=== PATIENT | male | born 1940 | race Caucasian/White ===

== ENCOUNTER → 2016-10-13 16:29 | Outpatient (CLI) | payer MEDICARE, OTHER ==
[2015-11-24 07:43] VITALS: BMI 29.4
[~2016-10-13 16:29] MED LIST: ADVAIR 500/501 DISK INH; AMBIEN CR 6.26.25 MG PO; BACTRIM DS TABL1 TAB PO; BAYER CHEWABLE81 MG PO; CARAFATE1 G/10 ML PO; DEXILANT60 MG PO; FISH OIL 1,0001 CA1 PO; GABAPENTIN100 MG PO; INDERAL10 MG PO; KLONOPIN1 MG PO; MYSOLINE 50 MG50 MG PO; OS-CAL 500+D TA1 TAB; PLAVIX75 MG PO; PREDNISONE50 MG PO; PROAIR HFA8.5 GM; PROTONIX40 MG PO; REGLAN10 MG PO; SINGULAIR10 MG PO; VITAMIN C1000 MG PO; XOLAIR150 MG/VIA INJ; ZETIA10 MG PO; ZOCOR10 MG PO; palgic; palgic PO
[2016-10-13 16:56] LABS: CHOL - HDL RATIO 2.7 ratio (2.3-4.9); LDL-HDL RATIO 1.4 ratio (1.5-3.5)
== END | disposition home or self-care (01) ==
LOC: D.LABREF 16:29
PROVIDERS: Internal Medicine Interventional Cardiology
DX: E78.5 Hyperlipidemia, unspecified (principal)

== ENCOUNTER 2018-07-15 07:51 | Outpatient (CLI) | payer MEDICARE, OTHER ==
[~2018-07-15] VITALS: Ht 172.7 cm; Wt 79.5 kg
--- NOTE | ~2018-07-15 | HEMODYNAMI ---
PATIENT:SHELLY LANG JR MEDICAL RECORD: [id number] : 42 LOCATION:D.CAT ADMISSION DATE: 07/15/18 Generatedon:07/15/201810:46 Patient name: SHELLY LANG Patient #: [id number] SSN: : [id number] Date of study: 07/15/2018 Page: Of Hemodynamic Procedure Report Patient Data Patient Demographics Procedure consent was obtained First Name: SHELLY Gender: Male Last Name: RICKEY Suffix: [facility] Initial: THOMAS : 1940 Patient #: [id number] Age: 77 year(s) Race: Unknown Additional ID: [id number] Contact details [address]: [address] [place] [address] [facility] State: [place] City: [place] Zip code: [address] Past Medical History Allergies Allergen Reaction Date Comments Reported Other allergy 07/05/2018 SIMVASTATIN Admission Admission Data Admission Date: 07/15/2018 Admission Time: 7:51 Procedure Procedure Types Cath Procedure Diagnostic Procedure LHC LH w/Coronaries Sedation Charges Moderate Sedation up to 15 minutes Peripheral Cath Diagnostic Procedure Auto Glass Technician Peripheral Procedures Wdhlv-Kqhzuhb-Jjm-Off Procedure Description Procedure Date Procedure Date: 07/15/2018 Procedure Start Time: 10:26 Procedure End Time: 10:46 Procedure Staff Name Function Chay Thornton MD Performing Physician Irasema De La Fuente RT Monitor Brittani Thomas RT Scrub Demario Ramesh RN Nurse Procedure Data Cath Procedure Fluoroscopy Diagnostic fluoroscopy Total fluoroscopy Time: 3.2 time: 3.2 min min Diagnostic fluoroscopy Total fluoroscopy dose: 992 dose: 992 mGy mGy Contrast Material Contrast Material Type Amount (ml) Isovue 300 105 Entry Location Entry Primary Successful Side Size Upsize 1 Upsize Entry Closure Lindsay ccessful Closure Location (Fr) (Fr) 2 (Fr) Remarks Device Remarks Femoral Right 5 Fr 6 Fr 6 Fr Exoseal artery Mid-Length Short Estimated blood loss: 10 ml Diagnostic catheters Device Type Used For End Catheter Placement MULTIPACK Pigtail 5 Fr Procedure catheter MULTIPACK JL 4.0 5Fr Procedure catheter DIAGNOSTIC JL 5 5Fr Procedure catheter ([id number]) DIAGNOSTIC AR MOD 5Fr Procedure Catheter ([id number]) MULTIPACK Pigtail 5 Fr Abdominal catheter aortogram with runoff Procedure Complications No complications Procedure Medications Medication Administration Route Dosage 0.9% NaCl I.V. 100 ml/hr Oxygen etCO2 Nasal cannula 2 l/min Heparin Flush Bag added to field 2 bags (1000units/500ml NS) Lidocaine 2% added to field 20 Versed I.V. 0.5 mg Fentanyl I.V. 25 mcg Versed I.V. 0.5 mg Fentanyl I.V. 25 mcg Hemodynamics Rest Heart Rate: 67 (bpm) Snapshots Pre Cath Intra NCS Post Cath Vital Signs Time Heart Resp SPO2 etCO2 NIBP Rhythm Pain Sedation Rate (ipm) (%) (mmHg) (mmHg) Status Level (bpm) 10:20:28 68 17 94 0 113/74(97) NSR 0 (11) 10(A) , No pain 10:24:36 69 17 94 0 114/70(90) NSR 0 (11) 10(A) , No pain 10:28:44 68 17 94 0 103/70(81) NSR 0 (11) 10(A) , No pain 10:32:45 70 20 88 0 114/72(94) NSR 0 (11) 9(A) , No pain 10:36:53 67 15 94 0 106/69(80) NSR 0 (11) 9(A) , No pain 10:40:59 88 10 93 0 99/68(84) NSR 0 (11) 9(A) , No pain 10:45:01 67 12 91 0 102/68(80) NSR 0 (11) 9(A) , No pain Medications Time Medication Route Dose Verified Delivered Reason Notes Eff ectiveness by by 10:17:16 0.9% NaCl I.V. 100 Demario Demario Per ml/hr Gadiel Ramesh physician RN RN 10:17:26 Oxygen etCO2 2 Demario Demario Per Nasal l/min Gadiel Ramesh physician cannula RN RN 10:17:40 Heparin Flush added 2 Demario Demario used for Bag to bags Gadiel Ramesh procedure (1000units/500ml field RN RN NS) 10:17:51 Lidocaine 2% added 20ml Demario Demario for local to vial Gadiel Solaresigan anesthetic field RN RN 10:21:59 Versed I.V. 0.5 Demario Hanks for mg Lorigan Lorigan sedation RN RN 10:22:07 Fentanyl I.V. 25 Demario Hanks for mcg Lorigan Lorigan sedation RN RN 10:27:33 Versed I.V. 0.5 Demario Hanks for mg Lorigan Lorigan sedation RN RN 10:27:39 Fentanyl I.V. 25 Demario Hanks for mcg Lorigan Lorigan sedation RN technical communication teacher Log Time Note 10:00:58 Demario Ramesh RN sent for patient. Start room use. 10:07:23 Informed consent obtained and on chart 10:08:04 Time tracking: Regular hours (M-F 7:00 - 5:00) 10:08:08 Plan of Care:Hemodynamics will remain stable., Cardiac rhythm will remain stable., Comfort level will be maintained., Respiratory function will remain adequate., Patient/ family verbilizes understanding of procedure., Procedure tolerated without complication., Recovers from procedure without complications.. 10:08:12 Patient received from Pre/Post Procedure Room to CCL 2 Alert and oriented. Tansferred to table in Supine position. 10:08:13 Warm blankets applied, and jose maria hugger turned on for patient comfort. 10:08:13 Correct patient and procedure confirmed by team. 10:08:14 ECG and BP/O2 sat monitors applied to patient. 10:17:16 0.9% NaCl 100 ml/hr I.V. was administered by Demario Ramesh RN; Per physician; 10:17:26 Oxygen 2 l/min etCO2 Nasal cannula was administered by Demario Ramesh RN; Per physician; 10:17:40 Heparin Flush Bag (1000units/500ml NS) 2 bags added to field was administered by Demario Ramesh RN; used for procedure; 10:17:51 Lidocaine 2% 20ml vial added to field was administered by Demario Ramesh RN; for local anesthetic; 10:19:22 Vital chart was started 10:19:25 Baseline sample Acquired. 10:19:30 Rhythm: sinus rhythm , paced 10:19:32 Full Disclosure recording started 10:20:00 H&P Date Dictated: 07/01/2018 Within 30 days and on chart., H&P Addendum completed by physician on day of procedure. (MUST COMPLETE FOR ALL OUTPATIENTS). 10:20:01 Pre-procedure instructions explained to patient. 10:20:03 Family in waiting room. 10:20:05 Patient NPO since Midnight. 10:20:12 Is the patient allergic to Iodine/contrast media? No. 10:20:13 Was the patient premedicated? Yes 10:20:14 Is patient on blood thinner?No 10:20:16 Patient diabetic? No. 10:20:24 Snore? Yes 10:20:25 Sleep apnea? No 10:20:31 Airway obstruction? Yes asthma 10:20:35 Dentures? No ? 10:20:43 IV patent on arrival in left forearm with 0.9% NaCl at [facility] 10:20:48 Lab results completed and on chart. 10:20:52 Right groin area was prepped with chlora-prep and draped in sterile fashion 10:20:53 Alarms reviewed by R. N. 10:20:54 Sharps counted by scrub and verified by R.N. 10:20:57 Physician paged 10:21:22 Physician arrived 10::23 --------ALL STOP TIME OUT------ 10:21:24 Final Timeout: patient, procedure, and site verified with staff and physician. All members of the team are in agreement. 10:21:26 Right groin site verified by team. 10:21:30 Physical assessment completed. ASA score P 2 - A patient with mild systemic disease as per Chay Thornton MD. 10:21:35 Sedation plan: IV Moderate Sedation Medication:Versed, Fentanyl 10::59 Versed 0.5 mg I.V. was administered by Demario Ramesh RN; for sedation; 10:22:07 Fentanyl 25 mcg I.V. was administered by Demario Ramesh RN; for sedation; 10:25:53 Procedure started. 10::59 Use device set Femoral Dx 10:26:04 Local anesthetic to right femoral artery with Lidocaine 2% by Chay Thornton MD.INITIAL ACCESS ONLY 10:26:05 Zero performed for pressure channel P1 10:26:22 A 5 Fr sheath was inserted into the Right Femoral artery 10:26:25 ACIST Syringe (57895) opened to sterile field. 10:26:26 Bag Decanter (2001S) opened to sterile field. 10:26:26 Medline Cath Pack ([id number]) opened to sterile field. 10:26:27 DIAGNOSTIC WIRE .035 260cm J wire (006397) opened to sterile field. 10:26:28 ACIST Hand Control (67474) opened to sterile field. 10:26:29 ACIST Manifold (69535) opened to sterile field. 10:26:29 DIAGNOSTIC Multipack 5Fr catheter set (AV5348) opened to sterile field. 10:26:32 SHEATH 5FR [place] (EJY591) opened to sterile field. 10:26:33 Tegaderm 4 x 4 (1626W) opened to sterile field. 10:27:29 A MULTIPACK Pigtail 5 Fr catheter was advanced over the wire and used for Procedure. 10:27:33 Versed 0.5 mg I.V. was administered by Demario Ramesh RN; for sedation; 10:27:35 LV gram done using ROSE 10:27:39 Fentanyl 25 mcg I.V. was administered by Demario Ramesh RN; for sedation; 10:28:09 EF : 50 % 10:28:12 Catheter removed. 10:28:18 A MULTIPACK JL 4.0 5Fr catheter was advanced over the wire and used for Procedure. 10:28:55 Catheter removed. 10:29:16 A DIAGNOSTIC JL 5 5Fr catheter ([id number]) was advanced over the wire and used for Procedure. 10:31:45 SHEATH 6FR ARROW 45cm (CL-02458) opened to sterile field. 10:32:01 Sheath upsized to a 6 Fr Mid-Length. 10:33:04 LCA angiography performed. 10:33:28 Catheter removed. 10:34:19 A DIAGNOSTIC AR MOD 5Fr Catheter ([id number]) was advanced over the wire and used for Procedure. 10:34:43 RCA angiography performed. 10:35:53 A MULTIPACK Pigtail 5 Fr catheter was advanced over the wire and used for Abdominal aortogram with runoff. 10:36:13 Abdominal angiogram w/ runoff was performed. 10:36:16 Left leg runoff performed. 10:36:18 Right leg runoff performed. 10:38:28 Sheath upsized to a 6 Fr Short. 10:38:28 Sheath removed intact; hemostasis achieved with Exoseal to the Right Femoral artery. 10:38:38 SHEATH 6FR [place] (OAW345) opened to sterile field. 10:38:54 EXOSEAL 6Fr (EX600) opened to sterile field. 10:40:51 Procedure ended.(Physican Out) 10:41:06 Fluoroscopy time 03.20 minutes. 10:41:18 Fluoroscopy dose: 992 mGy 10:41:18 Flurop Dose total: 992 10:41:22 Contrast amount:Isovue 300 105ml. 10:41:25 Sharps counted by scrub and verified by R.N. 10:41:29 Insertion/operative site no bleeding no hematoma. 10:41:35 Post-op/insertion site Right Femoral artery dressed using a 4 x 4 and Tegaderm. 10:41:39 Post Procedure Pulses reassessed and unchanged 10:41:43 Post-procedure physical assessment completed. ASA score P 2 - A patient with mild systemic disease as per Chay Thornton MD. 10:41:47 Post procedure rhythm: unchanged. 10:41:50 Estimated blood loss: 10 ml 10:41:53 Post procedure instruction explained to patient.Patient verbalizes understanding. 10:43:16 Procedure type changed to Cath procedure, Diagnostic procedure, LHC, LHC w/Coronaries, Sedation Charges, Moderate Sedation up to 15 minutes, Peripheral Cath Diagnostic Procedure, Auto Glass Technician Peripheral Procedures, Ujclm-Vigatco-Qbb-Off 10:43:18 Procedure and supply charges have been captured, reviewed, submitted and are correct. 10:43:39 Procedure Complication : No complications 10:45:58 Vital chart was stopped 10:45:59 See physician's report for complete and final results. 10:46:03 Report given to Pre/Post Procedure Room. 10:46:06 Patient transfered to Pre/Post Procedure Room with Stretcher. 10:46:09 Procedure ended. 10:46:09 Full Disclosure recording stopped 10:46:11 End room use (Document Last) Device Usage Item Name Manufacture Quantity Catalog Hospital Part Current Minimal L ot# / Number Charge Number Stock Stock Serial# Code KATHERIN Acist 1 73177 242566 294797 619879 20 Syringe [employer] (56513) Systems Inc Bag Microtek 1 999170 36218 596942 5 Decanter Medical Inc. () Medline Medline 1 [id number] 542083 05838 361341 5 Cath Pack ([id number]) DIAGNOSTIC [place] 1 518856 559616 876017 849067 30 WIRE .035 260cm J wire (743796) ACIST Hand Acist 1 37433 109030 871757 234332 5 Control Medical (65848) Systems Inc ACIST Acist 1 24892 990165 326122 426080 5 Manifold Medical (25205) Systems Inc DIAGNOSTIC Cardinal 1 [id number] 288943 48714 359278 30 Multipack Health 5Fr catheter set ([id number]) SHEATH 5FR Terumo 1 [id number] 924215 790917 515255 5 [place] (QVD798) Tegaderm 4 3M 1 1626W 886122 406512 248432 5 x 4 (1626W) MULTIPACK Cardinal 1 014820 5 Pigtail 5 Health Fr catheter MULTIPACK Cardinal 1 127156 5 JL 4.0 5Fr Health catheter DIAGNOSTIC Cardinal 1 [id number] 419433 141916 601612 5 JL 5 5Fr Health catheter ([id number]) SHEATH 6FR Teleflex 1 [id number] 403033 771015 492876 5 ARROW 45cm (CL-01234) DIAGNOSTIC Cardinal 1 [id number] 960207 159066 647314 15 AR MOD 5Fr Health Catheter ([id number]) SHEATH 6FR Terumo 1 [id number] 320776 693318 217599 40 [place] (HNG363) EXOSEAL 6Fr Cardinal 1 EX600 632966 984411 766074 10 (EX600) Health Signature Audit [place] Stage Time Signature Unsigned Intra-Procedure 07/15/2018 Irasema De La Fuente 10:46:38 AM RT(R) Signatures Monitor : Irasema De La Fuente Signature : RT Date : Time : [facility] [address] [place] [address]
--- NOTE | ~2018-07-15 | OP ---
PATIENT NAME: SHELLY LANG JR MEDICAL RECORD: [id number] :42 LOCATION:D.CAT ADMISSION DATE: SURGEON: PAULA CARRILLO MD DATE OF OPERATION: 07/15/2018 PROCEDURES: 1. Left heart catheterization. 2. Selective coronary angiography. 3. Left ventriculogram. 4. Aortofemoral runoff. 5. Abdominal aortography. INDICATION: Chest pain compatible with angina, leg pain, claudication, coronary artery disease, peripheral vascular disease. PROCEDURE IN DETAIL: After informed consent was obtained and after a detailed description of risks, benefits as well as alternative therapies, the patient elected to proceed with angiogram and heart catheterization. The right femoral area was prepped and draped in normal sterile fashion. Right femoral artery was cannulated via modified Seldinger technique with placement of 6-N[place] sheath. All catheters exchanged through this sheath. FINDINGS: The left ventriculogram was performed in standard 30-degree ROSE view, reveals good cardiac wall motion throughout all segments. Overall ejection fraction estimated 60%. SELECTIVE CORONARY ANGIOGRAPHY: 1. Left main is with no significant angiographic disease. 2. Left anterior descending has crgq-cf-eilvttbd irregularities, but no flow-limiting stenosis. 3. The left circumflex has wvnv-lr-hnrblbsx irregularities, but no flow-limiting stenosis. 4. Right coronary artery has moderate irregularities, but no flow-limiting stenosis. 5. Abdominal aortography was performed. The catheter was pulled down for aortofemoral runoff. Abdominal aortography reveals no significant abdominal aortic disease, no renal artery stenosis. RIGHT LEG: A. Iliac: The common internal and external iliacs are extremely tortuous, but only with mild irregularities, no stenosis greater than 20%. B. Femoral system: The common superficial and deep femoral have moderate irregularities, no stenosis greater than 20%. C. Popliteal and infrapopliteal vessels are widely patent with good 3-vessel runoff to the foot, although mildly diffusely diseased. LEFT LEG: A. Iliac: The common internal and external iliacs are extremely tortuous, but only with mild irregularities, no stenosis greater than 20%. B. Femoral system: The common superficial and deep femoral have moderate irregularities, no stenosis greater than 20%. C. Popliteal and infrapopliteal vessels are widely patent with good 3-vessel runoff to the foot, although mildly diffusely diseased. OVERALL IMPRESSION: Minimal coronary artery disease is present. No OPERATIVE REPORT [id number] SHELLY LANG JR flow-limiting stenosis. Minimal peripheral vascular disease is present. No flow-limiting stenosis. Continue medical management of cardiac and peripheral vascular risk factors. TRANSINT:[id number] Voice Confirmation ID: [id number] DOCUMENT ID: [id number] PAULA CARRILLO MD at 1324 CC: [id number] DICTATION DATE: 07/15/18 1045 BIT SETTER: 07/15/18 1112 DEP CLI 07/15/18 [facility] [address] [place] [address]
[2018-07-15 08:18] VITALS: Ht 172.7 cm; Wt 79.5 kg
[2018-07-15 08:54] LABS: BASOPHILS 0.2 % (0-2); EOSINOPHILS 42.6 % (0-7); HEMATOCRIT 40.6 % (42.0-54.0); HEMOGLOBIN 13.6 g/dL (13.5-17.5); IMMATURE GRANULOCYTES 0.2 % (0-5); LYMPHOCYTES 8.7 % (15-50); MCH 34.8 pg (26.0-34.0); MCHC 33.5 g/dL (31.0-37.0); MCV 103.8 fL (80.0-100.0); MEAN PLATELET VOLUME 10.5 fL (7.4-10.4); MONOCYTES 4.4 % (2-11); NEUTROPHILS 43.9 % (40-80); RBC 3.91 10x6/uL (4.20-6.10); RDW 13.3 % (11.5-14.5)
[2018-07-15] MEDS ORDERED: BETAPACE 80 MG80 MG PO (08:59)
[2018-07-15 09:00] LABS: PLATELET COUNT 179 10x3/uL (130-400)
[2018-07-15] MEDS ORDERED: PREDNISONE10 MG PO (09:00)
[2018-07-15 09:05] LABS: ANION GAP 14.9 mmol/L (8-16); CALCIUM 8.7 mg/dL (8.5-10.1); CREATININE - SERUM 1.1 mg/dL (0.6-1.3)
[2018-07-15 09:06] LABS: POTASSIUM - SERUM 4.9 mmol/L (3.5-5.1)
== END 2018-07-15 12:35 | disposition home or self-care (01) ==
LOC: D.CATH 07:51
PROVIDERS: Internal Medicine Interventional Cardiology
DX: I25.10 Atherosclerotic heart disease of native coronary artery without angina pectoris (principal); I70.213 Atherosclerosis of native arteries of extremities with intermittent claudication, bilateral legs; Z01.812 Encounter for preprocedural laboratory examination

== ENCOUNTER 2019-08-21 08:29 | Inpatient (IN) | payer MEDICARE, OTHER ==
[~2019-08-21] VITALS: Ht 172.7 cm; Wt 70.0 kg
--- NOTE | ~2019-08-21 | HEMODYNAMI ---
PATIENT:SHELLY LANG JR MEDICAL RECORD: [id number] : 42 LOCATION[id number] ADMISSION DATE: 08/21/19 Generatedon:08/22/201911:17 Patient name: SHELLY LANG Patient #: [id number] : 1940 Date of study: 08/22/2019 Page: Of Hemodynamic Procedure Report Patient Data Patient Demographics Procedure consent was obtained First Name: SHELLY Gender: Male Last Name: RICKEY Suffix: Jr Maciel Initial: THOMAS : 1940 Patient #: [id number] Age: 78 year(s) Race: SSN: [id number] Additional ID: [id number] Contact details [address]: [address] [place] [address] [place] State: [place] City: [place] Zip code: [address] Past Medical History Allergies Allergen Reaction Date Comments Reported Other allergy 07/05/2018 SIMVASTATIN Other allergy 08/22/2019 Admission Admission Data Admission Date: 08/21/2019 Admission Time: 10:27 Arrival Date: 08/21/2019 Arrival Time: 10:27 Admit Source: Emergency Insurance Payor: Medicare department [facility] #: [id number] Room #: D213 Height (in.): 68.11 BSA: 1.83 (m2) Height (cm.): 173 BMI: 23.39 (kg/m2) Weight (lbs.): 154.32 Weight (kg.): 70 Lab Results Lab Result Date: 08/22/2019 Lab Result Time: 0:00 Biochemistry Name Units Result Min Max BUN mg/dl 18 --(---*)-- 7 18 Creatinine mg/dl 1.1 --(--*-)-- 0.6 1.3 eGFR ml/min 69 *-(----)-- 90 120 NONAFRICAN CBC Name Units Result Min Max Hemoglobin g/dl 12.6 -*(----)-- 13.5 17.5 Procedure Procedure Types Cath Procedure Diagnostic Procedure C [facility] w/Coronaries Sedation Charges Moderate Sedation up to 15 minutes Procedure Description Procedure Date Procedure Date: 08/22/2019 Procedure Start Time: 11:07 Procedure End Time: 11:15 Procedure Staff Name Function Chay Thornton MD Performing Physician Irasema De La Fuente RT Monitor Brittani Thomas RT Scrub Reina Pena RN Nurse Emery Costa RT Skiver Machine Procedure Data Cath Procedure Fluoroscopy Diagnostic fluoroscopy Total fluoroscopy Time: 1 time: 1 min min Contrast Material Contrast Material Type Amount (ml) Isovue 300 46 Entry Location Entry Primary Successful Side Size (Fr) Upsize Upsize Entry Closure S uccessful Closure Location 1 (Fr) 2 (Fr) Remarks Device Remarks Femoral Right 6 Fr 6 Fr Exoseal artery Mid-Length Short Estimated blood loss: 10 ml Diagnostic catheters Device Type Used For End Catheter Placement DIAGNOSTIC Pigtail 5Fr Ventriculography catheter ([id number]) DIAGNOSTIC JL 5 5Fr Procedure catheter ([id number]) DIAGNOSTIC AR MOD 5Fr Procedure Catheter ([id number]) Procedure Complications No complications Procedure Medications Medication Administration Route Dosage 0.9% NaCl I.V. 100 ml/hr Oxygen etCO2 Nasal cannula 2 l/min Lidocaine 2% added to field 20 Heparin Flush Bag added to field 2 bags (1000units/500ml NS) Versed I.V. 2 mg Fentanyl I.V. 50 mcg Benadryl I.V. 50 mg Lopressor I.V. 5 mg Hemodynamics Rest BSA: 1.83 (m2) HGB: 12.6 (g/dl) O2 Consumption: Estimated: 248.88 (ml/min) O2 Co nsumption indexed: Estimated:136 (ml/min/m) Pre Cath Intra NCS Post Cath Vital Signs Time Heart Resp SPO2 etCO2 NIBP (mmHg) Rhythm Pain Sedation Rate (ipm) (%) (mmHg) Status Level (bpm) 10:47:32 111 17 96 19.5 108/84(100) ST 0 (11) 10(A) , No pain 10:51:32 111 10 96 21 111/83(97) ST 0 (11) 10(A) , No pain 10:55:30 110 16 99 18 132/106(115) ST 0 (11) 10(A) , No pain 10:59:35 120 25 99 23.3 125/104(115) ST 0 (11) 10(A) , No pain 11:03:37 124 25 98 32.3 134/99(114) ST 0 (11) 10(A) , No pain 11:07:43 123 27 99 34.5 132/98(112) ST 0 (11) 9(A) , No pain 11:11:47 115 25 99 29.2 114/88(98) ST 0 (11) 10(A) , No pain 11:15:46 101 25 99 22.5 110/86(102) ST 0 (11) 10(A) , No pain Medications Time Medication Route Dose Verified Delivered Reason Notes Eff ectiveness by by 10:43:52 0.9% NaCl I.V. 100 Chay Reina used for ml/hr Norberto Pena flyer repairer 10:44:03 Oxygen etCO2 2 Chay Reina used for Nasal l/min Norberto Pena procedure cannula RN 10:44:06 Benadryl I.V. 50 mg Chay Reina used for Norberto Pena flyer repairer 10:44:08 Lidocaine 2% added 20ml Chay Chay for local to vial Norberto Thornton MD anesthetic field 10:44:11 Heparin Flush added 2 Chay Chay used for Bag to bags Norberto Thornton MD procedure (1000units/500ml field NS) 11:03:41 Versed I.V. 2 mg Chay Reina for Norberto Pena sedation RN 11:03:51 Fentanyl I.V. 50 Chay Reina for mcg Norberto Pena sedation RN 11:08:23 Lopressor I.V. 5 mg Chay Reina Per Norberto Pena physician associate programmer Log Time Note 10:29:53 Diagnostic Cath Status : Elective 10:30:22 Emery Costa RT(R) sent for patient. Start room use. 10:30:22 Time tracking: Regular hours (M-F 7:00 - 5:00) 10:30:27 Plan of Care:Hemodynamics will remain stable., Cardiac rhythm will remain stable., Comfort level will be maintained., Respiratory function will remain adequate., Patient/ family verbilizes understanding of procedure., Procedure tolerated without complication., Recovers from procedure without complications.. 10:38:18 Informed consent obtained and on chart 10:39:17 Admit Source: Emergency department 10:39:26 Arrival Date: 08/21/2019 10:27:00 AM 10:39:52 Insurance Payor : Medicare 10:39:56 Patient Height : 68.11 inches 10:39:58 Patient Weight : 154.32 lbs 10:40:06 Patient received from Med II to CCL 2 Alert and oriented. Tansferred to table in Supine position. 10:40:07 Warm blankets applied, and jose maria hugger turned on for patient comfort. 10:40:07 Correct patient and procedure confirmed by team. 10:40:07 ECG and BP/O2 sat monitors applied to patient. 10:43:31 H&P Date Dictated: 08/21/2019 Within 30 days and on chart., H&P Addendum completed by physician on day of procedure. (MUST COMPLETE FOR ALL OUTPATIENTS). 10:43:33 Pre-procedure instructions explained to patient. 10:43:35 Family in waiting room. 10:43:37 Patient NPO since Midnight. 10:43:45 Patient allergic to Other allergy 10:43:48 Is the patient allergic to Iodine/contrast media? No. 10:43:49 Was the patient premedicated? Yes 10:43:52 0.9% NaCl 100 ml/hr I.V. was administered by Reina Pena RN; used for procedure; Verbal order read back and verified. 10:44:03 Oxygen 2 l/min etCO2 Nasal cannula was administered by Reina Pena RN; used for procedure; Verbal order read back and verified. 10:44:06 Benadryl 50 mg I.V. was administered by Reina Pena RN; used for procedure; Verbal order read back and verified. 10:44:08 Lidocaine 2% 20ml vial added to field was administered by Chay Thornton MD; for local anesthetic; Verbal order read back and verified. 10:44:10 Snore? Yes 10:44:11 Heparin Flush Bag (1000units/500ml NS) 2 bags added to field was administered by Chay Thornton MD; used for procedure; Verbal order read back and verified. 10:44:11 Sleep apnea? Yes 10:44:18 Airway obstruction? Yes COPD 10:44:30 Dentures? Unknown ? 10:44:32 Is patient on blood thinner?Yes 10:44:37 ACC The patient was administered the following blood thiners within the last 24 hours: ACCPlavix, Xarelto 10:44:40 Patient diabetic? No. 10:44:48 Patient pain scale 0/10 ?. 10:45:03 IV patent on arrival in left hand with 0.9% NaCl at [facility]. 10:45:06 Lab results completed and on chart. 10:46:14 Lab Result : BUN 18 mg/dl 10:46:14 Lab Result : Creatinine 1.1 mg/dl 10:46:14 Lab Result : eGFR NONAFRICAN 69 ml/min 10:46:14 Lab Result : Hemoglobin 12.6 g/dl 10:46:28 Stress Test: no; N/A ? 10:46:31 Vital chart was started 10:46:32 Risk of Mortality: .1 10:46:35 Risk of blood transfusion: 1.6 10:46:38 Risk of CHELSEA: 5.2 10:46:44 Right groin area was prepped with chlora-prep and draped in sterile fashion 10:46:44 Alarms reviewed by R. N. 10:46:45 Sharps counted by scrub and verified by R.N. 10:46:49 Physician paged 11:02:49 Physician arrived 11:02:49 --------ALL STOP TIME OUT------ 11:02:50 Final Timeout: patient, procedure, and site verified with staff and physician. All members of the team are in agreement. 11:02:52 Right groin site verified by team. 11:02:56 Fire Safety Assessment: A--An alcohol-based skin anteseptic being used preoperatively., C--Open oxygen or nitrous oxide is being used., D--An ESU, laser, or fiber-optic light is being used. 11:03:02 Physical assessment completed. ASA score P 2 - A patient with mild systemic disease as per Chay Thornton MD. 11:03:36 2) 60-89 Mildly reduced kidney function, and other findings (as for stage 1) point to kidney disease. 11:03:41 Versed 2 mg I.V. was administered by Reina Pena RN; for sedation; Verbal order read back and verified. 11:03:51 Fentanyl 50 mcg I.V. was administered by Reina Pena RN; for sedation; Verbal order read back and verified. 11:04:29 Maximum allowable contrast dose (3.7 X eGFR X 0.75)191 ml. 11:04:33 Sedation plan: IV Moderate Sedation Medication:Versed, Fentanyl 11:06:18 Procedure started. 11:06:18 Full Disclosure recording started 11:06:25 Use device set Femoral Dx 11:07:59 Local anesthetic to right femoral artery with Lidocaine 2% by Chay Thornton MD.INITIAL ACCESS ONLY 11:08:09 A 6 Fr Mid-Length sheath was inserted into the Right Femoral artery 11:08:23 Lopressor 5 mg I.V. was administered by Reina Pena RN; Per physician; Verbal order read back and verified. 11:08:32 A DIAGNOSTIC Pigtail 5Fr catheter ([id number]) was advanced over the wire and used for Ventriculography. 11:08:59 EF : 35 % 11:09:06 Catheter removed. 11:09:09 SHEATH 6FR Destination (RSR01) opened to sterile field. 11:09:12 SHEATH 6FR [place] (MIH565) opened to sterile field. 11:09:20 A DIAGNOSTIC JL 5 5Fr catheter ([id number]) was advanced over the wire and used for Procedure. 11:10:29 LCA angiography performed. 11:10:32 Catheter removed. 11:10:50 A DIAGNOSTIC AR MOD 5Fr Catheter (056676L) was advanced over the wire and used for Procedure. 11:11:21 RCA angiography performed. 11:11:36 Catheter removed. 11:11:40 ACIST Syringe (50177) opened to sterile field. 11:11:41 Bag Decanter () opened to sterile field. 11:11:41 Medline Cath Pack ([id number]) opened to sterile field. 11:11:44 ACIST Hand Control (80510) opened to sterile field. 11:11:45 ACIST Manifold (16306) opened to sterile field. 11:11:47 Tegaderm 4 x 4 (1626W) opened to sterile field. 11:11:51 EMERALD Guide Wire (074-927) opened to sterile field. 11:12:01 EXOSEAL 6Fr (EX600) opened to sterile field. 11:12:46 Sheath upsized to a 6 Fr Short. 11:12:46 Sheath removed intact; hemostasis achieved with Exoseal to the Right Femoral artery. 11:12:54 FEMSTOP Gold (F64836) opened to sterile field. 11:12:59 Procedure ended.(Physican Out) 11:13:09 Fluoroscopy time 01.00 minutes. 11:13:20 Dose Area Product 86186 mGy/cm. 11:13:24 Contrast amount:Isovue 300 46ml. 11:13:26 Maximum allowable dose exceeded? No. 11:13:28 Insertion/operative site no bleeding no hematoma. 11:13:33 Post right femoral artery:stable 11:13:53 Femstop placed over the right femoral artery at 90 mmHg. Hemostasis achieved. 11:14:04 Post-procedure physical assessment completed. ASA score P 2 - A patient with mild systemic disease as per Chay Thornton MD. 11:14:07 Post procedure rhythm: unchanged. 11:14:09 Estimated blood loss: 10 ml 11:14:16 Post procedure instruction explained to patient.Patient verbalizes understanding. 11:14:34 Procedure type changed to Cath procedure, Diagnostic procedure, LHC, C w/Coronaries, Sedation Charges, Moderate Sedation up to 15 minutes 11:14:35 Procedure and supply charges have been captured, reviewed, submitted and are correct. 11:15:11 Procedure Complication : No complications 11:15:14 Vital chart was stopped 11:15:18 [facility] Findings: mild to moderate CAD (<70%) 11:15:20 See physician's report for complete and final results. 11:15:22 Report given to Pre/Post Procedure Room. 11:15:26 Patient transfered to Pre/Post Procedure Room with Stretcher. 11:15:28 Procedure ended. 11:15:28 Full Disclosure recording stopped Device Usage Item Name Manufacture Quantity Catalog Hospital Part Current Minimal L ot# / Number Charge Number Stock Stock Serial# Code DIAGNOSTIC Cardinal 1 [id number] [id number] 5 Pigtail 5Fr Health catheter ([id number]) SHEATH 6FR Terumo 1 RSR01 798825 39992 346411 5 Destination (RSR01) SHEATH 6FR Terumo 1 [id number] 243145 835111 754567 40 [place] (OMQ083) DIAGNOSTIC Cardinal 1 [id number] 343482 995280 526263 5 JL 5 5Fr Health catheter (718888R) DIAGNOSTIC Cardinal 1 [id number] 961790 375175 034386 15 AR MOD 5Fr Health Catheter (288932X) ACIST Acist 1 93665 069797 774277 909462 20 Syringe Medical (03735) Systems Inc Bag Microtek 1 2002S 157846 37809 608035 5 Decanter Medical Inc. (2001S) Medline Medline 1 [id number] 037477 06312 694271 5 Cath Pack ([id number]) ACIST Hand Acist 1 47934 147489 561750 749464 5 Control Medical (78689) Systems Inc ACIST Acist 1 28518 572316 090308 851718 5 Manifold Medical (79668) Systems Inc Tegaderm 4 3M 1 1626W 668660 703875 180040 5 x 4 (1626W) EMERALD Cardinal 1 502-455 499582 147789 678792 5 Guide Wire Health (502455) EXOSEAL 6Fr Cardinal 1 EX600 531956 900705 611821 10 (EX600) Health FEMSTOP [facility] 1 Q05165 838526 886207 184388 5 Gold ([id number]) Signature Audit Tillman Stage Time Signature Unsigned Intra-Procedure 08/22/2019 Irasema De La Fuente 11:15:51 AM RT(R); Reina Pena RN; Chay Thornton MD Signatures Performing Physician : Signature : Chay Thornton MD Date : Time : Monitor : Irasema De La Fuente Signature : RT Date : Time : Nurse : Reina Pena RN Signature : Date : Time : [facility] [address] [place] [address]
[~2019-08-21 08:29] MED LIST changes: +BETAPACE 80 MG80 MG PO; +PREDNISONE10 MG PO
[2019-08-21 09:21] LABS: HEMATOCRIT 39.6 % (42.0-54.0); HEMOGLOBIN 12.3 g/dL (13.5-17.5); MCH 31.9 pg (26.0-34.0); MCHC 31.1 g/dL (31.0-37.0); MCV 102.9 fL (80.0-100.0); MEAN PLATELET VOLUME 11.1 fL (7.4-10.4); PLATELET COUNT 150 10x3/uL (130-400); RBC 3.85 10x6/uL (4.20-6.10); RDW 17.4 % (11.5-14.5)
--- NOTE | 2019-08-21 09:22 | NUR ---
DR. ANDERSON IN TO SEE PT.
[2019-08-21 09:23] VITALS: BP 97/66
[2019-08-21 09:26] LABS: CALC OSMOLALITY 283 mosm/kg (275-300); CALCIUM 8.7 mg/dL (8.5-10.1); CHLORIDE - SERUM 104 mmol/L (98-107); CREATININE - SERUM 1.1 mg/dL (0.6-1.3); GLUCOSE 118 mg/dL (74-106); SODIUM 141 mmol/L (136-145); UREA NITROGEN 18 mg/dL (7-18); eGFR NON AFRICAN AMERICAN 69 mL/min (90-120)
[2019-08-21 09:32] LABS: INR 1.23 (0.85-1.17); PROTIME 15.4 SECONDS (11.6-15.0)
[2019-08-21 09:33] LABS: APTT 36.9 SECONDS (22.8-39.4)
--- NOTE | 2019-08-21 09:37 | NUR ---
RESP. TX AT THIS TIME
[2019-08-21 09:47] LABS: ALKALINE PHOSPHATASE 98 U/L (46-116); ALT (SGPT) 23 U/L (10-68); BILIRUBIN - TOTAL 0.25 mg/dL (0.2-1.3); CKMB 3.4 U/L (0.0-3.6); CREATINE KINASE 49 UL (21-232); PRO BNP 1548 pg/mL (0-450); PROTEIN - SERUM 6.5 g/dL (6.4-8.2)
[2019-08-21 09:51] LABS: EOSINOPHILS 47 % (0-7); LYMPHOCYTES 3 % (15-50); MONOCYTES 1 % (2-11); NEUTROPHILS 49 % (40-80)
[2019-08-21 09:52] LABS: ANISOCYTOSIS 2+; PLATELET ESTIMATE NORMAL; POLYCHROMASIA 1+
[2019-08-21 09:53] LABS: TROPONIN-I 0.279 ng/mL (0.000-0.060)
--- NOTE | 2019-08-21 09:55 | NUR ---
ROSALINE IN LAB CALLED WITH AN ELEVATED TRIPONIN OF 0.279. DR. ANDERSON AWARE.
[2019-08-21] MEDS ORDERED: FLORANEX / LACT1 TAB PO (10:02)
[2019-08-21] MEDS ORDERED: MUCINEX600 MG PO (10:03)
[2019-08-21 10:04] LABS: MAGNESIUM - SERUM 1.8 mg/dL (1.8-2.4)
[2019-08-21] MEDS ORDERED: LYRICA50 MG PO (10:04)
[2019-08-21] MEDS ORDERED: IPRAT-ALBUT 0.5-3 ML UPD (10:04)
[2019-08-21] MEDS ORDERED: REMERON30 MG PO (10:05)
[2019-08-21] MEDS ORDERED: STERAPRED DS 1010 MG PO (10:06)
[2019-08-21] MEDS ORDERED: FLOMAX0.4 MG PO (10:37)
[2019-08-21] MEDS ORDERED: ULTRAM50 MG PO (10:39)
[2019-08-21] MEDS ORDERED: TROSPIUM CHLORI20 MG PO (10:39)
[2019-08-21] MEDS ORDERED: XARELTO20 MG (10:39)
[2019-08-21] MEDS ORDERED: COLACE100 MG PO (10:42)
[2019-08-21] MEDS ORDERED: COREG12.5 MG PO (10:42)
[2019-08-21] MEDS ORDERED: BAYER CHEWABLE81 MG PO (10:42)
[2019-08-21] MEDS ORDERED: AMBIEN5 MG PO (10:42)
[2019-08-21] MEDS ORDERED: LIPITOR10 MG PO (10:43)
[2019-08-21 10:47] VITALS: BP 106/75
[2019-08-21 11:32] LABS: CKMB 3.9 U/L (0.0-3.6); CREATINE KINASE 43 UL (21-232); TROPONIN-I 0.275 ng/mL (0.000-0.060)
[2019-08-21 11:42] LABS: PATH REVIEW PERIPHERAL SMEAR REVIEWED
--- NOTE | 2019-08-21 11:52 | NUR ---
RECEIVED PT FROM ER. PT IS LETHARGIC AND ASLEEP AT THIS TIME. RR EVEN AND LABORED ON 6L 02. PT RESPONDS TO VERBAL COMMANDS APPROPRIATELY AND ANSWERS QUESTIONS ACCURATELY. DOBUTAMINE INFUSING @5MCG/KG/MIN VIA L.AC PIV. VSS AND WNL. QUICKSTART, HISTORY, AND MED REQ COMPLETE. PT LYING SEMI FOWLERS. CALL LIGHT W/I REACH. PT IS ORIENTED X4. BIPAP AT BEDSIDE. RESPIRATORY NOTIFIED THAT PT IS IN ROOM. PT DENIES ANY FURTHER NEEDS. WILL CTM.
[2019-08-21 12:27] VITALS: BP 107/69; BMI 23.4
[2019-08-21 15:22] LABS: % SATURATION 22 % (15-55); IRON 48 ug/dl (35-150); TOTAL IRON BIND CAPACITY 218 ug/dl (260-445); UNSAT IRON BIND CAPACITY 170 ug/dl (150-375)
[2019-08-21] MEDS ORDERED: MYSOLINE 50 MG50 MG PO (15:23)
[2019-08-21 15:38] VITALS: BP 103/73
--- NOTE | 2019-08-21 16:27 | NUR ---
DOBUTAMINE DC'D PER ORDER. ABX CURRENTLY INFUSING VIA L.AC PIV. WILL CTM.
[2019-08-21 17:51] LABS: CKMB 3.3 U/L (0.0-3.6); CREATINE KINASE 42 UL (21-232)
[2019-08-21 17:55] LABS: APPEARANCE CLEAR (CLEAR); BILIRUBIN NEGATIVE (NEGATIVE); COLOR YELLOW (YELLOW); GLUCOSE NEGATIVE (NEGATIVE); KETONE NEGATIVE (NEGATIVE); NITRITE NEGATIVE (NEGATIVE); PROTEIN NEGATIVE (NEGATIVE); SPECIFIC GRAVITY 1.015 (1.005-1.020); UROBILINOGEN NORMAL (NORMAL)
[2019-08-21 17:56] LABS: TROPONIN-I 0.296 ng/mL (0.000-0.060)
--- NOTE | 2019-08-21 19:24 | NUR ---
UP IN BED, STATES HE CANNOT BREATHE WHILE IN BED, RECLINER OBTAINED FOR ROOM, PT WAS THANKFUL AND SAYS TO BE MORE COMFORTABLE IN CHAIR. HIGH FLOW NC WITH O2 AT 6 LITERS NOTED. WHEEZING NOTED. RT CALLED. LEFT AC IS INFUSING VIA PUMP PER ORDERS. ABLE TO VOICE ALL NEEDS. WILL NOTE ANY CHANGE.
[2019-08-21 20:30] VITALS: BP 127/91
[2019-08-21 21:36] LABS: CKMB 4.2 U/L (0.0-3.6); CREATINE KINASE 53 UL (21-232)
[2019-08-21 21:43] LABS: TROPONIN-I 0.404 ng/mL (0.000-0.060)
[2019-08-22 01:00] VITALS: BP 113/80
--- NOTE | 2019-08-22 03:23 | NUR ---
I have reviewed this patient and I concur with the Shift Assessment completed by the Licensed Practical Nurse today this shift.
[2019-08-22 05:43] VITALS: BP 106/76
[2019-08-22 06:37] LABS: BASOPHILS 0.2 % (0-2); EOSINOPHILS 55.4 % (0-7); HEMATOCRIT 40.5 % (42.0-54.0); HEMOGLOBIN 12.4 g/dL (13.5-17.5); IMMATURE GRANULOCYTES 0.2 % (0-5); LYMPHOCYTES 4.1 % (15-50); MCH 31.7 pg (26.0-34.0); MCHC 30.6 g/dL (31.0-37.0); MCV 103.6 fL (80.0-100.0); MEAN PLATELET VOLUME 10.8 fL (7.4-10.4); MONOCYTES 4.1 % (2-11); PLATELET COUNT 144 10x3/uL (130-400); RBC 3.91 10x6/uL (4.20-6.10); RDW 17.2 % (11.5-14.5); WBC 14.2 10x3/uL (4.8-10.8)
[2019-08-22 06:38] LABS: CALC OSMOLALITY 278 mosm/kg (275-300); CALCIUM 8.5 mg/dL (8.5-10.1); CARBON DIOXIDE 28.2 mmol/L (21.0-32.0); CHLORIDE - SERUM 104 mmol/L (98-107); GLUCOSE 89 mg/dL (74-106); MAGNESIUM - SERUM 1.8 mg/dL (1.8-2.4); POTASSIUM - SERUM 3.7 mmol/L (3.5-5.1); SODIUM 140 mmol/L (136-145); UREA NITROGEN 16 mg/dL (7-18); eGFR NON AFRICAN AMERICAN 77 mL/min (90-120)
[2019-08-22 08:00] VITALS: BP 128/92
[2019-08-22 14:06] VITALS: Ht 172.7 cm; Wt 70.0 kg
[2019-08-22 16:00] VITALS: BP 114/81
--- NOTE | 2019-08-22 16:14 | NUR ---
SKIN TEAR NOTED IN INTRAGLUTEAL CLEFT. MEPILEX SACRAL DRESSING IS BEING APPLIED FOR PROTECTION.
--- NOTE | 2019-08-22 19:10 | NUR ---
BEDSIDE REPORT RECEIVED FROM DAY SHIFT, PT CARE ASSUMED. INTRODUCED SELF AND WROTE NAME ON BOARD. PT SITTING UP IN BED, WATCHING TV, AAOX4. DENIES ANY NEEDS AT THIS TIME. BED IN LOWEST POSITION, SR X2, CALL LIGHT WITHIN REACH. WILL CONTINUE TO MONITOR.
[2019-08-22 20:00] VITALS: BP 96/66
[2019-08-23] VITALS: BP 102/68
[2019-08-23 04:00] VITALS: BP 101/69
[2019-08-23 05:39] LABS: BASOPHILS 0.1 % (0-2); EOSINOPHILS 7.9 % (0-7); HEMATOCRIT 39.9 % (42.0-54.0); HEMOGLOBIN 12.1 g/dL (13.5-17.5); IMMATURE GRANULOCYTES 0.3 % (0-5); LYMPHOCYTES 9.2 % (15-50); MCH 31.7 pg (26.0-34.0); MCHC 30.3 g/dL (31.0-37.0); MCV 104.5 fL (80.0-100.0); MEAN PLATELET VOLUME 11.8 fL (7.4-10.4); MONOCYTES 3.9 % (2-11); NEUTROPHILS 78.6 % (40-80); PLATELET COUNT 161 10x3/uL (130-400); RBC 3.82 10x6/uL (4.20-6.10); RDW 17.1 % (11.5-14.5)
[2019-08-23 05:50] LABS: WBC 7.4 10x3/uL (4.8-10.8)
[2019-08-23 06:29] LABS: ANION GAP 11.6 mmol/L (8-16); CALCIUM 8.3 mg/dL (8.5-10.1); CARBON DIOXIDE 26.7 mmol/L (21.0-32.0); CREATININE - SERUM 1.1 mg/dL (0.6-1.3); MAGNESIUM - SERUM 1.8 mg/dL (1.8-2.4); VANCOMYCIN - TROUGH 14.2 ug/mL (10.0-20.0)
[2019-08-23 06:31] LABS: POTASSIUM - SERUM 4.3 mmol/L (3.5-5.1)
--- NOTE | 2019-08-23 07:00 | NUR ---
RECEIVED REPORT. ASSUMED CARE OF PATIENT. PATIENT SITTING UP IN BED WITH EYES CLOSED, BIPAP PATENT. RESP EVEN AND UNLABORED. CALL LIGHT WITHIN REACH. NO DISTRESS. WHITE BOARD UPDATED.
[2019-08-23 08:00] VITALS: BP 115/78
--- NOTE | 2019-08-23 14:39 | NUR ---
MEPILEX REPLACED TO COCCYX AREA. AREA IS FRAGILE AND SORE. PATIENT STATES DURING HIS LAST HOSPITALIZATION HE GOT A BEDSORE AND THESE PADS MADE IT FEEL BETTER. SCARE TISSURE NOT OVER COCCYX. SMALL 0.5X0.5 X0.1 AREA OPEN SUPERIOR TO COCCYX. PATIENT NOW SITTING IN CHAIR AT BEDSIDE. NO DISTRESS.
[2019-08-23 16:00] VITALS: BP 112/71
[2019-08-23 16:08] LABS: IMMUNOGLOBULIN A 309 mg/dL (61-437); IMMUNOGLOBULIN G 1188 mg/dL (700-1600)
[2019-08-23 20:00] VITALS: BP 100/64
--- NOTE | 2019-08-23 21:46 | NUR ---
INITIAL ROUNDS COMPLETED AT 1910 HRS. PT SITTING UP IN [facility] RECLINER. NO DISTRESS NOTED. DENIES ANY DISCOMFORT. ASSESSMENT COMPLETED AT 1950 HRS. VSS. SR WITH 1ST DEGREE AV BLOCK HR 84. O2 5.5LHF O2. LUNGS DIMINISHED IN UPPER LOBES, EXP WHEEZES NOTED TO LOWER LOBES. IV TO LAC SL. IV TO R HAND WITH NS AT 15CC/HR. IV PATENT. WU. GAIT EVEN AND STADY. PM MEDS GIVEN. PT CURRENTLY IN RECLINER WATCHING TV. CALL LIGHT WITHIN REACH.
[2019-08-24] VITALS: BP 103/70
--- NOTE | 2019-08-24 00:17 | NUR ---
PT RESTING WITH EYES CLOSED. RESP EVEN AND REGULAR. SR UP X2, CALL LIGHT WITHIN REACH.
--- NOTE | 2019-08-24 02:01 | NUR ---
PT RESTING WITH EYES CLOSED. RESP EVEN AND REGULAR. SR UP X2, CALL LIGHT WITHIN REACH.
--- NOTE | 2019-08-24 03:45 | NUR ---
PT RESTING WITH EYES CLOSED. RESP EVEN AND REGULAR. SR UPX2, CALL LIGHT WITHIN REACH.
[2019-08-24 04:00] VITALS: BP 105/70
--- NOTE | 2019-08-24 06:24 | NUR ---
VSS THROUGHOUT NIGHT. SR WITH 1ST DEGREE AV BLOCK DURING SHIFT. RESTED WELL. NEEDS MET; WILL CONTINUE TO MONITOR.
[2019-08-24 06:37] LABS: BASOPHILS 0.2 % (0-2); EOSINOPHILS 9.9 % (0-7); HEMATOCRIT 35.3 % (42.0-54.0); HEMOGLOBIN 10.7 g/dL (13.5-17.5); IMMATURE GRANULOCYTES 0.2 % (0-5); LYMPHOCYTES 10.8 % (15-50); MCH 31.3 pg (26.0-34.0); MCHC 30.3 g/dL (31.0-37.0); MCV 103.2 fL (80.0-100.0); MEAN PLATELET VOLUME 11.7 fL (7.4-10.4); MONOCYTES 4.8 % (2-11); NEUTROPHILS 74.1 % (40-80); PLATELET COUNT 129 10x3/uL (130-400); RBC 3.42 10x6/uL (4.20-6.10); WBC 6.3 10x3/uL (4.8-10.8)
[2019-08-24 06:47] LABS: CALC OSMOLALITY 285 mosm/kg (275-300); CALCIUM 8.4 mg/dL (8.5-10.1); CARBON DIOXIDE 28.2 mmol/L (21.0-32.0); CHLORIDE - SERUM 107 mmol/L (98-107); CREATININE - SERUM 0.9 mg/dL (0.6-1.3); GLUCOSE 120 mg/dL (74-106); MAGNESIUM - SERUM 1.9 mg/dL (1.8-2.4); POTASSIUM - SERUM 4.2 mmol/L (3.5-5.1); SODIUM 141 mmol/L (136-145); UREA NITROGEN 23 mg/dL (7-18); eGFR NON AFRICAN AMERICAN 87 mL/min (90-120)
--- NOTE | 2019-08-24 07:00 | NUR ---
RECEIVED REPORT. ASSUMED CARE OF PATIENT. CALL LIGHT WITHIN REACH. PATIENT SITTING UP IN BED WITH EYES CLOSED. HOB ELEVATED AT LEAST 40 DEGREES. RESP EVEN AND UNLABORED. NO DISTRESS. SR ON TELEMETRY WITH 1ST DEGREE BLOCK, RATE 73.
[2019-08-24 08:00] VITALS: BP 124/83
--- NOTE | 2019-08-24 09:45 | NUR ---
PATIENT AMBULATING ON UNIT WITH PHYSICAL THERAPY. PATIENT TOLERATING THERAPY WELL. NO DISTRESS.
--- NOTE | 2019-08-24 11:43 | NUR ---
PATIENT OOB TO CHAIR AT BEDSIDE. DENIES NEEDS. CALL LIGHT WITHIN REACH. NO DISTRESS.
[2019-08-24 12:00] VITALS: BP 99/64
--- NOTE | 2019-08-24 14:30 | NUR ---
ICE CREAM PROVIDED UPON REQUEST.
--- NOTE | 2019-08-24 15:00 | NUR ---
PATIENT OOB TO CHAIR AT BEDSIDE WATCHING FOOTBALL GAME ON PERSONAL PHONE. CALL LIGHT WITHIN REACH. NO DISTRESS.
[2019-08-24 16:00] VITALS: BP 108/68
--- NOTE | 2019-08-24 18:33 | NUR ---
PATIENT SITTING IN CHAIR AT BEDSIDE WATCHING NEW [employer] PLAY[employer] TODAY. PATIENT IS FROM [place] AND WATCHED THIS ATHELETE PLAY BALL MANY TIMES. PATIENT IS TEARY EYED SHARING STORIES. THANKED PATIENT FOR SHARING HIS STORIES WITH THIS FRUIT THINNER MACHINE OPERATOR. PATIENT DENIES NEEDS AT THIS TIME. NO DISTRESS.
[2019-08-24 20:00] VITALS: BP 123/78
--- NOTE | 2019-08-24 20:33 | NUR ---
IV TO R HAND OUT AT [address] ON R HAND. BLOOD CLEANED FORM PT, TABLE AND BED. VANC IVBP SWITCHED TO LAC IV. ASSESSMENT COMPLETED AT 1950 HRS. VSS. SR WITH 1ST DEGREE AV BLOCK PER CM HR 73. ALERT AND ORIENTED TO PERSON, PLACE AND TIME. WU. O2 5.5L HF O2. LUNGS DIMINISHED IN BASES WITH SCATTERED EXP WHEEZES THROUGHOUT LNG MASCORRO. SPLINT NOTED TO R THUMB. MEPILEX TO COCCYX CLEAN, DRY AND INTACT. PT CURRENTLY WATCHING TV. SR UP X2, CALL LIGHT WITHIN REACH.
--- NOTE | 2019-08-24 22:37 | NUR ---
PT RESTING WITH EYES CLOSED. RESP EVEN AND REGULAR. HOB UP 60 DEGREES. SR UP X2, CALL LIGHT WITHIN REACH.
[2019-08-25] VITALS: BP 92/65
--- NOTE | 2019-08-25 00:50 | NUR ---
PT RESTING WITH EYES CLOSED. RESP EVEN AND REGULAR BIPAP IN USE. HOB UP APPROX 45 DEGREES. SR UP X2, CALL LIGHT WITHIN REACH.
--- NOTE | 2019-08-25 02:56 | NUR ---
PT RESTING WITH EYES CLOSED. RESP EVEN AND REGULAR. SR UP X2, CALL LIGHT WITHIN REACH AND BIPAP IN USE.
[2019-08-25 04:00] VITALS: BP 105/71
--- NOTE | 2019-08-25 04:01 | NUR ---
IV TO LAC OCCLUDED. DC'D WITH CATHETER INTACT. NEW IV STARTED #20 TO R HAND WITH ATTEMPT X1. PT TOLERATED ACTIVITY WELL. IVAB RESTARTED.
[2019-08-25 06:03] LABS: CALC OSMOLALITY 284 mosm/kg (275-300); CALCIUM 8.1 mg/dL (8.5-10.1); CARBON DIOXIDE 30.4 mmol/L (21.0-32.0); CHLORIDE - SERUM 105 mmol/L (98-107); CREATININE - SERUM 0.9 mg/dL (0.6-1.3); GLUCOSE 118 mg/dL (74-106); MAGNESIUM - SERUM 1.8 mg/dL (1.8-2.4); POTASSIUM - SERUM 4.4 mmol/L (3.5-5.1); SODIUM 140 mmol/L (136-145); UREA NITROGEN 26 mg/dL (7-18); eGFR NON AFRICAN AMERICAN 87 mL/min (90-120)
[2019-08-25 06:06] LABS: BASOPHILS 0.2 % (0-2); EOSINOPHILS 9.1 % (0-7); HEMATOCRIT 34.2 % (42.0-54.0); HEMOGLOBIN 10.3 g/dL (13.5-17.5); LYMPHOCYTES 13.3 % (15-50); MCH 30.9 pg (26.0-34.0); MCHC 30.1 g/dL (31.0-37.0); MCV 102.7 fL (80.0-100.0); MEAN PLATELET VOLUME 11.6 fL (7.4-10.4); MONOCYTES 8.8 % (2-11); NEUTROPHILS 68.6 % (40-80); PLATELET COUNT 128 10x3/uL (130-400); RBC 3.33 10x6/uL (4.20-6.10); RDW 16.9 % (11.5-14.5); WBC 5.5 10x3/uL (4.8-10.8)
--- NOTE | 2019-08-25 06:29 | NUR ---
VSS THROUGHOUT NIGHT. SR WITH 1ST DEGREE AV BLOCK PER CM. PT RESTED WELL DURING SHIFT. NEEDS MET; WILL CONTINUE TO MONITOR.
--- NOTE | 2019-08-25 07:10 | NUR ---
PT SITTING IN RECLINER CHAIR. ALERT AND ORIENTED. O2 AT 5L VIA HIGH FLOW NC. PT STATES HE HAS NO FURTHER NEEDS AT THIS TIME. BED LOW. CL IN REACH.
[2019-08-25 08:03] VITALS: BP 120/79
--- NOTE | 2019-08-25 10:52 | NUR ---
I have reviewed this patient and I concur with the Shift Assessment completed by the Licensed Practical Nurse today this shift.
--- NOTE | 2019-08-25 11:39 | NUR ---
OT NOTE: PT UP IN CHAIR. ABLE TO AMB WITH IV POLE IN ROOM WITH SBA. BASIC ADLS WITH SBA. ABLE TO AMB 250 FT WITH USE OF IV POLE AND 02 TO IMPROVE STRENGTH AND FUNCTIONAL ENDURANCE. ALL FUNCTIONAL TRANSFERS WITH SPV. GERA DIEGO, OTR/L [phone]
--- NOTE | 2019-08-25 11:42 | NUR ---
Pt has non-blanchable redness (stage 1 pressure injury) on coccyx. The area is being protected with mepilex sacral dressing. Pt is aware of turning/repositioning every 2 hours. He demonstrated how he repositions himself while up in chair. He is able to stand and transfer without assistance. Wound care will continue monitoring.
[2019-08-25 12:04] VITALS: BP 105/72
[2019-08-25 14:57] VITALS: BP 97/69
--- NOTE | 2019-08-25 19:59 | NUR ---
RECEIVED UP IN CHAIR WITH EYES OPEN AND LOOKING AT HIS CELL PHONE. ALERT AND ORIENTED X4. UP AD LUPE. O2@ 5 LITERS PER N/C IN PLACE. IV TO RIGHT HAND WITH NS AT O. TELEMETRY IN PLACE. DENIES ANY NEEDS AT THIS TIME.
[2019-08-25 20:00] VITALS: BP 118/74
[2019-08-26] VITALS: BP 93/61
[2019-08-26 03:07] LABS: IMMUNOGLOBULIN E 680 IU/mL (6-495)
[2019-08-26 04:00] VITALS: BP 109/67
[2019-08-26 06:07] LABS: BASOPHILS 0.2 % (0-2); HEMATOCRIT 34.1 % (42.0-54.0); HEMOGLOBIN 10.4 g/dL (13.5-17.5); IMMATURE GRANULOCYTES 0.2 % (0-5); LYMPHOCYTES 17.2 % (15-50); MCH 31.6 pg (26.0-34.0); MCHC 30.5 g/dL (31.0-37.0); MCV 103.6 fL (80.0-100.0); MEAN PLATELET VOLUME 11.8 fL (7.4-10.4); MONOCYTES 6.5 % (2-11); NEUTROPHILS 72.9 % (40-80); RBC 3.29 10x6/uL (4.20-6.10); WBC 5.4 10x3/uL (4.8-10.8)
[2019-08-26 06:21] LABS: PLATELET COUNT 154 10x3/uL (130-400)
[2019-08-26 06:27] LABS: CALC OSMOLALITY 282 mosm/kg (275-300); CHLORIDE - SERUM 107 mmol/L (98-107); CREATININE - SERUM 0.9 mg/dL (0.6-1.3); GLUCOSE 105 mg/dL (74-106); MAGNESIUM - SERUM 1.9 mg/dL (1.8-2.4); POTASSIUM - SERUM 4.2 mmol/L (3.5-5.1); SODIUM 141 mmol/L (136-145); VANCOMYCIN - TROUGH 19.3 ug/mL (10.0-20.0); eGFR NON AFRICAN AMERICAN 87 mL/min (90-120)
[2019-08-26 06:29] LABS: UREA NITROGEN 19 mg/dL (7-18)
[2019-08-26 09:01] VITALS: BP 107/71
--- NOTE | 2019-08-26 11:24 | CN ---
PATIENT NAME:SHELLY LIN JR MEDICAL RECORD: [id number] : 42 LOCATION:D.M2 D.2134 ADMIT DATE: 08/21/19 ACCOUNT: [id number] CONSULTING PHYSICIAN: PAULA CARRILLO MD REFERRING PHYSICIAN: LUH QUEZADA MD DATE OF CONSULTATION: 08/21/2019 DIAGNOSES: 1. Non-Q-wave myocardial infarction. 2. Shortness of breath, dyspnea on exertion. 3. Angina. 4. Chronic obstructive pulmonary disease. 5. Coronary artery disease. 6. Smoking history. 7. Hypertension. 8. Hyperlipidemia. HISTORY OF PRESENT ILLNESS: Mr. Lin is known to us. He has a past history of coronary artery disease, cardiac catheterization in the past, history of coronary artery disease, but not enough for intervention. He recently has had increasing shortness of breath as well as chest pain, last episode of chest pain was this morning. His troponin is positive for non-Q-wave myocardial infarction. EKG is abnormal suggestive of inferolateral ischemia. PHYSICAL EXAMINATION: CONSTITUTIONAL/GENERAL APPEARANCE: Well nourished, well developed, appears stated age. EYES: Lids and conjunctivae noninjected. No discharge. No pallor. ENT: Lips within normal limit. No cyanosis. No pallor. NECK: Carotid arteries, bilateral normal upstroke. No bruits. No thrills. No jugular venous pressure or distention. CERVICAL LYMPH NODES: Nontender. Nonenlarged. THYROID: Not enlarged. No nodules. CARDIOVASCULAR: Precordial exam, nondisplaced. No heaves or pericardial thrills. Rate and rhythm, regular. Heart sounds, normal S1, normal S2. No S3, no gallop, no rub. Systolic murmur, not heard. Diastolic murmur, not heard. RESPIRATORY: Respiratory effort, unlabored. Normal curvature. No thoracic deformity. No chest wall tenderness. Percussion, resonant. Auscultation, clear. No wheezes, no rales, no rhonchi. ABDOMEN: Soft, nondistended, nontender. No abdominal pain, no vomiting and normal appetite. MUSCULOSKELETAL: No joint tenderness, normal gait, normal tone. SKIN: Warm and dry. OVERALL IMPRESSION: Non-Q-wave myocardial infarction. This is most likely contributing to his shortness of breath. At this time, we will proceed with coronary angiography in the a.m. Further care depends upon findings of the angiography. TRANSINT:[id number] Voice Confirmation ID: [id number] DOCUMENT ID: [id number] CONSULT REPORT [id number] SHELLY LIN JR, JEFFREY MD at 1124 CC: [id number] DICTATION DATE: 08/21/19 160 HEEL SANDER RUBBER: 08/21/192116 ADM IN [place] [address] [place] [address]
--- NOTE | 2019-08-26 11:24 | OP ---
PATIENT NAME: SHELLY LANG JR MEDICAL RECORD: [id number] :42 LOCATION:D.M2 D.2134 ADMISSION DATE:08/21/19 SURGEON: PAULA CARRILLO MD DATE OF OPERATION: 08/22/2019 PROCEDURES: 1. Left heart catheterization. 2. Selective coronary angiography. 3. Left ventriculogram. INDICATION: Non-Q-wave myocardial infarction. DESCRIPTION OF PROCEDURE: After informed consent was obtained and after a detailed description of risks, benefits as well as alternative therapies, the patient elected to proceed with angiogram and heart catheterization. The right femoral area was prepped and draped in normal sterile fashion. Right femoral artery was cannulated via modified Seldinger technique with placement of 6-Estonian sheath. All catheters exchanged through this sheath. FINDINGS: The left ventriculogram was performed in standard 30-degree ROSE view reveals global hypokinesis, ejection fraction 35%. SELECTIVE CORONARY ANGIOGRAPHY: 1. Left main is with no significant angiographic disease. 2. Left anterior descending has previously placed stents, these are widely patent with no significant restenosis. No disease elsewise throughout the LAD or its branches. 3. Left circumflex has previously placed stents, these are widely patent with no significant restenosis. No disease elsewise throughout the left circumflex or its branches. 4. The right coronary artery has previously placed stents, these are widely patent with no significant restenosis. No disease elsewise throughout the RCA or its branches. OVERALL IMPRESSION: Wide patency of the previously placed stents, cardiomyopathy. The increased troponin is secondary to demand ischemia. No intervention is necessary at this time. TRANSINT:[id number] Voice Confirmation ID: [id number] DOCUMENT ID: [id number] PAULA CARRILLO MD at 1124 CC: [id number] DICTATION DATE: 08/22/19 1119 BIOLOGY TEACHER: 08/22/19 1235 ADM IN [place] [address] [place] [address]
[2019-08-26 13:17] VITALS: BP 113/63
--- NOTE | 2019-08-26 14:55 | NUR ---
Nutrition Follow-up: Visited with pt during lunch. Eating well. Denies N/V/C/D. Noted pt to be NPO p MN for bronch. Diet: Cardiac PO intake: 100% x 7 meals Wt: 154# (08/23) Last BM: 08/26 Labs noted: Ca 8.0 Meds noted: Colace, Solumedrol, Remeron -Continue current diet as tolerated. -Need new wt; noted daily wts ordered. -RD following.
[2019-08-26 16:12] VITALS: BP 105/70
[2019-08-26 20:00] VITALS: BP 99/67
--- NOTE | 2019-08-26 20:11 | NUR ---
EVENING ROUNDS COMPLETED. VSS, WITH SBP 99. PT IN NO DISTRESS AT THIS TIME. ALTHOUGH C/O OCCASSIONAL COUGH, WHEN OOB. COUGH IS NON-PRODUCTIVE. FLUTTER AND BIPAP @BEDSIDE. EDUCATE PT ON NEED TO USE BIPAP 2X BID DAY, ALSO NEEDED HS. RIGHT THUMB FRACTURE DRESSING NOTED. NS INFUSING KVO. PT DENIES ANY FURTHER NEEDS AT THIS TIME. NPO AFTER MIDNIGHT FOR BRONCHOSCOPY. WILL CPOC.
--- NOTE | 2019-08-26 22:28 | NUR ---
PT PLACED ON BIPAP AT THIS TIME. NO S/S OF DISTRESS. WILL CTM.
[2019-08-27] VITALS: BP 104/66
[2019-08-27 04:00] VITALS: BP 102/70
[2019-08-27 06:14] LABS: BASOPHILS 0.2 % (0-2); EOSINOPHILS 6.3 % (0-7); HEMATOCRIT 35.5 % (42.0-54.0); HEMOGLOBIN 10.8 g/dL (13.5-17.5); LYMPHOCYTES 16.2 % (15-50); MCH 31.4 pg (26.0-34.0); MCHC 30.4 g/dL (31.0-37.0); MCV 103.2 fL (80.0-100.0); MEAN PLATELET VOLUME 11.1 fL (7.4-10.4); MONOCYTES 6.5 % (2-11); NEUTROPHILS 70.8 % (40-80); PLATELET COUNT 154 10x3/uL (130-400); RBC 3.44 10x6/uL (4.20-6.10); WBC 5.4 10x3/uL (4.8-10.8)
[2019-08-27 06:32] LABS: CALC OSMOLALITY 280 mosm/kg (275-300); CHLORIDE - SERUM 106 mmol/L (98-107); CREATININE - SERUM 0.9 mg/dL (0.6-1.3); GLUCOSE 104 mg/dL (74-106); POTASSIUM - SERUM 4.3 mmol/L (3.5-5.1); SODIUM 140 mmol/L (136-145); UREA NITROGEN 18 mg/dL (7-18); eGFR NON AFRICAN AMERICAN 87 mL/min (90-120)
[2019-08-27 08:00] VITALS: BP 106/61
--- NOTE | 2019-08-27 12:13 | MORECARE ---
CASE MANAGEMENT DISCHARGE SUMMARY PATIENT: SHELLY LANG UNIT: [id number] ADM DATE: 08/21/19 AGE: 78 : 41 SEX: M ROOM/BED: D.2134 AUTHOR: NIRAJ CORTES PHYSICIAN: REFERRING PHYSICIAN: LUH QUEZADA MD DATE OF SERVICE: 08/27/19 Discharge Plan Patient Name: SHELLY LANG [facility] [facility] 1940 Planned Disposition: Assisted Living Anticipated Discharge Date: Discharge Date: Expected LOS: Initial Reviewer: [email or web address] Initial Review Date: 08/21/2019 Generated: 08/27/19 1:12 pm Patient Name: SHELLY LANG Page 70710 at 1213 All edits/amendments must be made on the electronic document DICTATION DATE: 08/27/19 1212 MATCH MARKER: LETICIA 08/27/19 1212 RPT#: [id number] DC DATE: STATUS: ADM IN [facility] [address] [place] [address] END OF REPORT
--- NOTE | 2019-08-27 12:21 | MORECARE ---
CASE MANAGEMENT DISCHARGE SUMMARY PATIENT: SHELLY LANG UNIT: [id number] ADM DATE: 08/21/19 AGE: 78 : 41 SEX: M ROOM/BED: D.2134 AUTHOR: NIRAJ CORTES PHYSICIAN: REFERRING PHYSICIAN: LUH QUEZADA MD DATE OF SERVICE: 08/27/19 Discharge Plan Patient Name: SHELLY LANG [facility] [facility] 1940 Planned Disposition: Assisted Living Anticipated Discharge Date: Discharge Date: Expected LOS: Initial Reviewer: [id number] Initial Review Date: 08/21/2019 Generated: 08/27/19 1:20 pm DCPIA - Discharge Planning Initial Assessment Updated by [email or web address]: Florencio Elmore on 08/27/19 12:17 pm * Is the patient Alert and Oriented? Yes * How many steps to enter\exit or inside your home? ELEVATOR * PCP DR. RENU NAIDU * Pharmacy [facility] * Preadmission Environment Assisted Living * Facility Name [facility] * ADLs Partial Dependent * Partial ADLs (Assistance needed) Medication Management * Equipment Cane Nebulizer Oxygen * Other Equipment HOME AND PORTABLE OXYGEN [facility] * List name and contact numbers for known caregivers / representatives who currently or will assist patient after discharge: GERA HICKS, DTR, BIBI LANG, SON, * Verbal permission to speak to the caregivers and representatives has been obtained from the patient. N/A * Community resources currently utilized None * Please name any agencies selected above. NONE * Additional services required to return to the preadmission environment? No * Can the patient safely return to the preadmission environment? Yes * Has this patient been hospitalized within the prior 30 days at any hospital? No Last DP export: 08/27/19 11:13 a Patient Name: SHELLY LANG Page 72626 at 1221 All edits/amendments must be made on the electronic document DICTATION DATE: 08/27/19 1220 CROCHETER HAND: LETICIA 08/27/19 1220 RPT#: [id number] DC DATE: STATUS: ADM IN [facility] [address] [place] [address] END OF REPORT
--- NOTE | 2019-08-27 12:26 | NUR ---
PT BACK TO ROOM FROM BRONCH. FEELING BETTER. SOME COUGHING. OXYGEN VIA NC AT 6L.
--- NOTE | 2019-08-27 12:43 | MORECARE ---
CASE MANAGEMENT DISCHARGE SUMMARY PATIENT: SHELLY LANG UNIT: [id number] ADM DATE: 08/21/19 AGE: 78 : 41 SEX: M ROOM/BED: D.8594 AUTHOR: SEBASITAN,DOC PHYSICIAN: REFERRING PHYSICIAN: LUH QUEZADA MD DATE OF SERVICE: 08/27/19 Discharge Plan Patient Name: SHELLY LANG Facility: [facility]:[place] : 1940 Planned Disposition: Assisted Living Anticipated Discharge Date: Discharge Date: Expected LOS: Initial Reviewer: [id number] Initial Review Date: 08/21/2019 Generated: 08/27/19 1:42 pm Comments DCP- Discharge Planning Updated by [id number]: Florencio Elmore on 08/27/19 11:[address] Patient Name: SHELLY LANG Admission Status: ER Accout number: [id number] Admission Date: 08-21-2019 : 1940 Admission Diagnosis: Attending: DAMIEN, Current LOS: 6 Anticipated DC Date: Planned Disposition: Assisted Living Primary Insurance: MEDICARE A & B PLANNED EXTERNAL PROVIDER: [facility] Discharge Planning Comments: CM MET WITH PT IN ROOM TO DISCUSS DISCHARGE PLANNING AND NEEDS. PT REPORTS LIVING AT [facility]; PT HAS ASSISTANCE WITH MEDICATION MANAGEMENT, MEALS AND TRANSPORTATION. PT HAS CANE, NEBUILZER AND HOME OXYGEN FROM [facility] PATIENT. PT HAS NO OTHER OUTSIDE SERVICES ASSISTING IN THE HOME. CM DISCUSSED AVAILABILITY OF HOME HEALTH, REHAB SERVICES AND MEDICAL EQUIPMENT. PT DENIES DISCHARGE NEEDS, REPORTS [facility] WILL PICK HIM UP FOR DISCHARGE HOME. IMPORTANT MESSAGE FROM MEDICARE PROVIDED AND EXPLAINED. PT PLANS TO DISCHARGE BACK TO [facility]. [facility] WILL NEED TO REASSESS PT TO RETURN. FOR DISCHARGE, NOTIFY [facility] NURSE AT [phone]. Metal Burrer: Florencio Elmore DCPIA - Discharge Planning Initial Assessment Updated by [email or web address]: Florencio Elmore on 08/27/19 12:17 pm * Is the patient Alert and Oriented? Yes * How many steps to enter\exit or inside your home? ELEVATOR * PCP DR. RENU NAIDU * Pharmacy [facility] * Preadmission Environment Assisted Living * Facility Name [facility] * ADLs Partial Dependent * Partial ADLs (Assistance needed) Medication Management * Equipment Cane Nebulizer Oxygen * Other Equipment HOME AND PORTABLE OXYGEN [facility]IENT * List name and contact numbers for known caregivers / representatives who currently or will assist patient after discharge: GERA HICKS, DTR, BIBI LANG, SON, * Verbal permission to speak to the caregivers and representatives has been obtained from the patient. N/A * Community resources currently utilized None * Please name any agencies selected above. NONE * Additional services required to return to the preadmission environment? No * Can the patient safely return to the preadmission environment? Yes * Has this patient been hospitalized within the prior 30 days at any hospital? No Last DP export: 08/27/19 11:21 a Patient Name: SHELLY LANG Page 53757 at 1243 All edits/amendments must be made on the electronic document DICTATION DATE: 08/27/191241 OBIEE OBIA SOLUTION ARCHITECT: LETICIA 08/27/19 1242 RPT#: [id number] DC DATE: STATUS: ADM IN [facility] [address] [place] [address] END OF REPORT
--- NOTE | 2019-08-27 15:11 | NUR ---
OT NOTE: PT HAVING BRONCHOSCOPY IN AM.. IN PM, PT WAS FATIGED. ABLE TO PERFORM BED MOB WITH MIN ASSIST. DID NOT WANT TO AMB DUE TO FATIGUE. PERFORMED SIMPLE GROOMING AND FEEDING WITH SET UP. REPORTS BREATHING IS MUCH BETTER. GERA DIEGO, OTR/L [phone]
[2019-08-27 16:00] VITALS: BP 110/67
[2019-08-27 17:20] LABS: MACROPHAGES BF 8 %; NEUT - BF 79 %
[2019-08-27 17:25] LABS: EOS BF 4 %; MACROPHAGES BF 12 %; MESOTHELIALS BF 8 %; NEUT - BF 30 %
[2019-08-27 17:32] LABS: EOS BF 4 %; MACROPHAGES BF 2 %; MESOTHELIALS BF 1 %; NEUT - BF 82 %
[2019-08-27 20:00] VITALS: BP 92/52
[2019-08-28] VITALS: BP 97/71
[2019-08-28 04:00] VITALS: BP 102/66
[2019-08-28 06:51] LABS: BASOPHILS 0.3 % (0-2); EOSINOPHILS 3.1 % (0-7); HEMATOCRIT 35.1 % (42.0-54.0); HEMOGLOBIN 10.6 g/dL (13.5-17.5); IMMATURE GRANULOCYTES 0.2 % (0-5); LYMPHOCYTES 15.5 % (15-50); MCHC 30.2 g/dL (31.0-37.0); MCV 102.6 fL (80.0-100.0); MEAN PLATELET VOLUME 11.3 fL (7.4-10.4); MONOCYTES 6.9 % (2-11); PLATELET COUNT 148 10x3/uL (130-400); RBC 3.42 10x6/uL (4.20-6.10); RDW 16.8 % (11.5-14.5); WBC 6.1 10x3/uL (4.8-10.8)
[2019-08-28 07:28] LABS: CALC OSMOLALITY 280 mosm/kg (275-300); CALCIUM 8.3 mg/dL (8.5-10.1); CARBON DIOXIDE 30.8 mmol/L (21.0-32.0); CHLORIDE - SERUM 104 mmol/L (98-107); GLUCOSE 126 mg/dL (74-106); POTASSIUM - SERUM 4.3 mmol/L (3.5-5.1); SODIUM 138 mmol/L (136-145); UREA NITROGEN 21 mg/dL (7-18); eGFR NON AFRICAN AMERICAN 77 mL/min (90-120)
[2019-08-28 08:00] VITALS: BP 96/66
[2019-08-28 12:00] VITALS: BP 93/60
[2019-08-28 15:57] VITALS: BP 101/76
[2019-08-28 17:08] LABS: ACID FAST SMEAR Negative (()); AFB SPECIMEN PROCESSING Concentration (())
[2019-08-28 17:08] LABS: ACID FAST SMEAR Negative (()); AFB SPECIMEN PROCESSING Concentration (())
[2019-08-28 17:08] LABS: ACID FAST SMEAR Negative (()); AFB SPECIMEN PROCESSING Concentration (())
--- NOTE | 2019-08-28 19:02 | NUR ---
DROPLET ISO OBSERVED NEEDS SEEN TO PT UP TO CHAIR AT THIS TIME
[2019-08-28 20:00] VITALS: BP 103/68
[2019-08-29] VITALS: BP 99/70
--- NOTE | 2019-08-29 00:24 | NUR ---
BIPAP IN PLACE PT RESTING QUIETLY NO DISTRESS
[2019-08-29 04:00] VITALS: BP 104/73
--- NOTE | 2019-08-29 05:20 | NUR ---
I have reviewed this patient and I concur with the Shift Assessment completed by the Licensed Practical Nurse today this shift.
[2019-08-29 06:36] LABS: BASOPHILS 0 % (0-2); EOSINOPHILS 0.8 % (0-7); HEMATOCRIT 34.9 % (42.0-54.0); HEMOGLOBIN 10.7 g/dL (13.5-17.5); IMMATURE GRANULOCYTES 0.4 % (0-5); LYMPHOCYTES 14.6 % (15-50); MCH 31.6 pg (26.0-34.0); MCHC 30.7 g/dL (31.0-37.0); MCV 102.9 fL (80.0-100.0); MEAN PLATELET VOLUME 11.3 fL (7.4-10.4); MONOCYTES 5.7 % (2-11); NEUTROPHILS 78.5 % (40-80); PLATELET COUNT 157 10x3/uL (130-400); RBC 3.39 10x6/uL (4.20-6.10); RDW 16.8 % (11.5-14.5); WBC 5.3 10x3/uL (4.8-10.8)
[2019-08-29 07:05] LABS: CALC OSMOLALITY 281 mosm/kg (275-300); CALCIUM 8.2 mg/dL (8.5-10.1); CARBON DIOXIDE 31.5 mmol/L (21.0-32.0); CHLORIDE - SERUM 104 mmol/L (98-107); GLUCOSE 107 mg/dL (74-106); POTASSIUM - SERUM 4.5 mmol/L (3.5-5.1); SODIUM 140 mmol/L (136-145); UREA NITROGEN 21 mg/dL (7-18); eGFR NON AFRICAN AMERICAN 77 mL/min (90-120)
[2019-08-29 07:49] VITALS: BP 116/79
--- NOTE | 2019-08-29 08:00 | NUR ---
AM ROUNDS COMPLETED. INTRODUCED MYSELF TO PT PRIMARY RN FOR TODAYS SHIFT. PT IS A&O SITTING UP IN HIS BEDSIDE CHAIR EATING BREAKFAST. SHIFT ASSESSMENT COMPLETED. PT STATES HE IS FEELING PRETTY GOOD OVERALL AND WANTS TO BE DISCHARGED TODAY IF ITS SAFE. WILL DISCUSS WITH CARE TEAM. WILL REVIEW CARE PLAN AND ORDERS AND CPOC. PT DENIES ANY CURRENT PAIN OR NEEDS AT THIS TIME. CL IN REACH.
[2019-08-29 11:06] VITALS: BP 112/70
--- NOTE | 2019-08-29 12:04 | NUR ---
PT SITTING UP IN HIS CHAIR EATING LUNCH. PT IS GOING TO BE DISCHARGED TODAY AND IS VERY PLEASED TO HEAR THIS. PT DENIES ANY CURRENT PAIN OR NEEDS AT THIS TIME. CL IN REACH WILL CTM.
[2019-08-29 12:10] LABS: FUNGUS STAIN Final report (())
[2019-08-29 12:10] LABS: FUNGUS STAIN Final report (())
[2019-08-29 12:10] LABS: FUNGUS STAIN Final report (())
--- NOTE | 2019-08-29 13:26 | MORECARE ---
CASE MANAGEMENT DISCHARGE SUMMARY PATIENT: SHELLY LANG UNIT: [id number] ADM DATE: 08/21/19 AGE: 78 : 41 SEX: M ROOM/BED: D.0844 AUTHOR: SEBASTIAN,DOC PHYSICIAN: REFERRING PHYSICIAN: LUH QUEZADA MD DATE OF SERVICE: 08/29/19 Discharge Plan Patient Name: SHELLY LANG Facility: [facility]:[place] : 1940 Planned Disposition: Assisted Living Anticipated Discharge Date: 08/29/19 Discharge Date: Expected LOS: 8 Initial Reviewer: [id number] Initial Review Date: 08/21/2019 Generated: 08/29/19 2:25 pm Comments DCP- Discharge Planning Updated by [id number]: Florencio Elmore on 08/27/19 11:[address] Patient Name: SHELLY LANG Admission Status: ER Accout number: [id number] Admission Date: 08-21-2019 : 1940 Admission Diagnosis: Attending: DAMIEN, Current LOS: 6 Anticipated DC Date: Planned Disposition: Assisted Living Primary Insurance: MEDICARE A & B PLANNED EXTERNAL PROVIDER: [facility] Discharge Planning Comments: CM MET WITH PT IN ROOM TO DISCUSS DISCHARGE PLANNING AND NEEDS. PT REPORTS LIVING AT [facility]; PT HAS ASSISTANCE WITH MEDICATION MANAGEMENT, MEALS AND TRANSPORTATION. PT HAS CANE, NEBUILZER AND HOME OXYGEN FROM [facility]. PT HAS NO OTHER OUTSIDE SERVICES ASSISTING IN THE HOME. CM DISCUSSED AVAILABILITY OF HOME HEALTH, REHAB SERVICES AND MEDICAL EQUIPMENT. PT DENIES DISCHARGE NEEDS, REPORTS [facility] WILL PICK HIM UP FOR DISCHARGE HOME. IMPORTANT MESSAGE FROM MEDICARE PROVIDED AND EXPLAINED. PT PLANS TO DISCHARGE BACK TO [facility]. [facility] WILL NEED TO REASSESS PT TO RETURN. FOR DISCHARGE, NOTIFY [facility] NURSE AT [phone]. Lead Network Architect: Florencio Elmore DCPIA - Discharge Planning Initial Assessment Updated by [email or web address]: Florencio Elmore on 08/27/19 12:17 pm * Is the patient Alert and Oriented? Yes * How many steps to enter\exit or inside your home? ELEVATOR * PCP DR. RENU NAIDU * [facility] * Preadmission Environment Assisted Living * Facility Name [facility] * ADLs Partial Dependent * Partial ADLs (Assistance needed) Medication Management * Equipment Cane Nebulizer Oxygen * Other Equipment HOME AND PORTABLE OXYGEN [facility] * List name and contact numbers for known caregivers / representatives who currently or will assist patient after discharge: GERA FABIOLA, DTR, BIBI LANG, SON, * Verbal permission to speak to the caregivers and representatives has been obtained from the patient. N/A * Community resources currently utilized None * Please name any agencies selected above. NONE * Additional services required to return to the preadmission environment? No * Can the patient safely return to the preadmission environment? Yes * Has this patient been hospitalized within the prior 30 days at any hospital? No Coverage Notice Reviewer: [email or web address] Cruz Elmore Notice Issued Date-Time: 08/29/2019 11:50 Notice Type: IM Discharge Notice Notice Delivered To: Patient Relationship to Patient: Help Desk Manager Name: Delivery Method: HAND - Hand Delivered Chelo Days: Prior Verbal Notification: Recipient Understood Notice: Yes Recipient Signature: Yes Med Rec Note Co-signed by Attending: Coverage Notice Comment: Last DP export: 08/27/19 11:43 a Patient Name: SHELLY LANG Page 96221 at 1326 All edits/amendments must be made on the electronic document DICTATION DATE: 08/29/19 1325 SEAFOOD TECHNOLOGY SPECIALIST: LETICIA 08/29/19 1325 RPT#: [id number] DC DATE: STATUS: ADM IN [facility] [address] [place] [address] END OF REPORT
--- NOTE | 2019-08-29 13:36 | MORECARE ---
CASE MANAGEMENT DISCHARGE SUMMARY PATIENT: SHELLY LANG UNIT: [id number] ADM DATE: 08/21/19 AGE: 78 : 41 SEX: M ROOM/BED: D.2134 AUTHOR: NIRAJ CORTES PHYSICIAN: REFERRING PHYSICIAN: LUH QUEZADA MD DATE OF SERVICE: 08/29/19 Discharge Plan Patient Name: SHELLY LANG Facility: [facility]:[place] : 1940 Planned Disposition: Assisted Living Anticipated Discharge Date: 08/29/19 Discharge Date: Expected LOS: 8 Initial Reviewer: [id number] Initial Review Date: 08/21/2019 Generated: 08/29/19 2:36 pm Comments DCP- Discharge Planning Updated by [email or web address]: Florencio Elmore on 08/29/19 12:[address] Patient Name: SHELLY LANG Encounter No: [id number] : 1940 Primary Insurance: MEDICARE A & B Anticipated DC Date: 08-29-2019 Planned Disposition: Assisted Living External Planned Provider: [facility] DCP follow-up note: CM RECEIVED DISCHARGE ORDERS, CM MET WITH PT IN ROOM TO DISCUSS DISCHARGE NEEDS AND PLANNING. CM DISCUSSED AVAILABILITY OF HOME HEALTH, REHAB SERVICES AND MEDICAL EQUIPMENT. PT DENIES DISCHARGE NEEDS. REPORTS [facility] TO TRANSPORT HOME AT DISCHARGE. IMPORTANT MESSAGE FROM MEDICARE PROVIDED AND EXPLAINED. CM SPOKE TO BEDSIDE NURSE, PT NOW ON 2 LITERS NASAL CANNULA, OXYGEN. CM CALLED [facility], SPOKE TO RIN OF [facility], , NOTIFIED OF DISCHARGE TODAY; RIN INFORMED CM THAT PT WILL NEED REASSESSMENT TO RETURN AND SHE WILL CONTACT COMMUNICATIONS ADMINISTRATOR NOW. CM FAXED DISCHARGE MEDICATION LIST, PHYSICAL THERAPY NOTE AND TODAYS VITALS TO [facility]ED [facility]IVING AT [phone]. CM WAITING ON [facility] EVALUATION TO RETURN TO ASSISTED LIVING TODAY. MAKENZIE BLACKWOOD DCP- Discharge Planning Updated by [id number]: Florencio Elmore on 08/27/19 11:[address] Patient Name: SHELLY LANG Admission Status: ER Accout number: [id number] Admission Date: 08-21-2019 : 1940 Admission Diagnosis: Attending: DAMIEN, Current LOS: 6 Anticipated DC Date: Planned Disposition: Assisted Living Primary Insurance: MEDICARE A & B PLANNED EXTERNAL PROVIDER: [facility] Discharge Planning Comments: CM MET WITH PT IN ROOM TO DISCUSS DISCHARGE PLANNING AND NEEDS. PT REPORTS LIVING AT [facility]; PT HAS ASSISTANCE WITH MEDICATION MANAGEMENT, MEALS AND TRANSPORTATION. PT HAS CANE, NEBUILZER AND HOME OXYGEN FROM [facility] PATIENT. PT HAS NO OTHER OUTSIDE SERVICES ASSISTING IN THE HOME. CM DISCUSSED AVAILABILITY OF HOME HEALTH, REHAB SERVICES AND MEDICAL EQUIPMENT. PT DENIES DISCHARGE NEEDS, REPORTS [facility] WILL PICK HIM UP FOR DISCHARGE HOME. IMPORTANT MESSAGE FROM MEDICARE PROVIDED AND EXPLAINED. PT PLANS TO DISCHARGE BACK TO [facility]. [facility] WILL NEED TO REASSESS PT TO RETURN. FOR DISCHARGE, NOTIFY [facility] NURSE AT [phone]. Gate Technician: Florencio Elmore DCPIA - Discharge Planning Initial Assessment Updated by [email or web address]: Florencio Elmore on 08/27/19 12:17 pm * Is the patient Alert and Oriented? Yes * How many steps to enter\exit or inside your home? ELEVATOR * PCP DR. RENU NAIDU * [facility] * Preadmission Environment Assisted Living * Facility Name [facility] * ADLs Partial Dependent * Partial ADLs (Assistance needed) Medication Management * Equipment Cane Nebulizer Oxygen * Other Equipment HOME AND PORTABLE OXYGEN [facility]IENT * List name and contact numbers for known caregivers / representatives who currently or will assist patient after discharge: GERA HICKS, DTR, BIBI LANG, SON, * Verbal permission to speak to the caregivers and representatives has been obtained from the patient. N/A * Community resources currently utilized None * Please name any agencies selected above. NONE * Additional services required to return to the preadmission environment? No * Can the patient safely return to the preadmission environment? Yes * Has this patient been hospitalized within the prior 30 days at any hospital? No External Providers [facility] Next Contact Date: 08/29/2019 Service Request Date: Service Type: Resolution: Reviewer: Comments: Coverage Notice Reviewer: [id number] - Florencio Elmore Notice Issued Date-Time: 08/29/2019 11:50 Notice Type: IM Discharge Notice Notice Delivered To: Patient Relationship to Patient: Manager Action Name: Delivery Method: HAND - Hand Delivered Chelo Days: Prior Verbal Notification: Recipient Understood Notice: Yes Recipient Signature: Yes Med Rec Note Co-signed by Attending: Coverage Notice Comment: Last DP export: 08/29/19 12:26 p Patient Name: SHELLY LANG Page 76422 at 1336 All edits/amendments must be made on the electronic document DICTATION DATE: 08/29/19 1336 COMMUNITY SERVICE ORGANIZATION DIRECTOR: LETICIA 08/29/19 1336 RPT#: [id number] DC DATE: STATUS: ADM IN [facility] [address] [place] [address] END OF REPORT
[2019-08-29] MEDS ORDERED: VIBRAMYCIN 100100 MG PO (14:12)
--- NOTE | 2019-08-29 15:02 | NUR ---
ASSISTED PT WITH SHOWERING SUPPLIES. PT IS STANDING UP AT SINK GETTING HIMSELF READY FOR DISCHARGE. PT STATES HE IS FEELING MUCH BETTER AND DENIES ANY CURRENT NEEDS. JUST AT BEDSIDE AND EXPLAINED DISEASE AND HEALING AND WILL F/U IN A COUPLE WEEKS. AWAITING DISCHARGE PAPERWORK.
--- NOTE | 2019-08-29 17:47 | NUR ---
D/C PTS L.FA PIV WITH CATHETER TIP FULLY INTACT. ALL BELONGINGS BAGGED AND READY TO GO. D/C TELEMETRY AND RETURNED TO [facility]. DISCHARGE TEACHING PROVIDED AND PAPERS SIGNED. PT VERBALIZED UNDERSTANDING AND DENIES ANY QUESTIONS OR CONCERNS. [facility] TRANSPORTATION HERE TO P/U PT. WILL ESCORT DOWN AT THIS TIME.
--- NOTE | 2019-08-30 15:49 | MORECARE ---
CASE MANAGEMENT DISCHARGE SUMMARY PATIENT: SHELLY LANG UNIT: [id number] ADM DATE: 08/21/19 AGE: 78 : 41 SEX: M ROOM/BED: D.5574 AUTHOR: NIRAJ CORTES PHYSICIAN: REFERRING PHYSICIAN: LUH QUEZADA MD DATE OF SERVICE: 08/30/19 Discharge Plan Patient Name: SHELLY LANG Facility: [facility]:[place] : 1940 Planned Disposition: Assisted Living Anticipated Discharge Date: 08/29/19 Discharge Date: 08/29/2019 Expected LOS: 8 Initial Reviewer: [id number] Initial Review Date: 08/21/2019 Generated: 08/30/19 4:49 pm Comments DCP- Discharge Planning Updated by [id number]: Florencio Nelson on 08/29/19 12:[address] Patient Name: SHELLY LANG Encounter No: [id number] : 1940 Primary Insurance: MEDICARE A & B Anticipated DC Date: 08-29-2019 Planned Disposition: Assisted Living External Planned Provider: [facility] DCP follow-up note: CM RECEIVED DISCHARGE ORDERS, CM MET WITH PT IN ROOM TO DISCUSS DISCHARGE NEEDS AND PLANNING. CM DISCUSSED AVAILABILITY OF HOME HEALTH, REHAB SERVICES AND MEDICAL EQUIPMENT. PT DENIES DISCHARGE NEEDS. REPORTS [facility] TO TRANSPORT HOME AT DISCHARGE. IMPORTANT MESSAGE FROM MEDICARE PROVIDED AND EXPLAINED. CM SPOKE TO BEDSIDE NURSE, PT NOW ON 2 LITERS NASAL CANNULA, OXYGEN. CM CALLED [facility], SPOKE TO RIN OF [facility], , NOTIFIED OF DISCHARGE TODAY; RIN INFORMED CM THAT PT WILL NEED REASSESSMENT TO RETURN AND SHE WILL CONTACT MECHANICAL SOUND TECHNICIAN NOW. CM FAXED DISCHARGE MEDICATION LIST, PHYSICAL THERAPY NOTE AND TODAYS VITALS TO [facility] AT [phone]. CM WAITING ON [facility] EVALUATION TO RETURN TO ASSISTED LIVING TODAY. FLORENCIO NELSON CASE MANAGEMENT DCP- Discharge Planning Updated by [id number]: Florencio Nelson on 08/27/19 11:[address] Patient Name: SHELLY LANG Admission Status: ER Accout number: [id number] Admission Date: 08-21-2019 : 1940 Admission Diagnosis: Attending: DAMIEN, Current LOS: 6 Anticipated DC Date: Planned Disposition: Assisted Living Primary Insurance: MEDICARE A & B PLANNED EXTERNAL PROVIDER: [facility] Discharge Planning Comments: CM MET WITH PT IN ROOM TO DISCUSS DISCHARGE PLANNING AND NEEDS. PT REPORTS LIVING AT [facility]; PT HAS ASSISTANCE WITH MEDICATION MANAGEMENT, MEALS AND TRANSPORTATION. PT HAS CANE, NEBUILZER AND HOME OXYGEN FROM [facility] PATIENT. PT HAS NO OTHER OUTSIDE SERVICES ASSISTING IN THE HOME. CM DISCUSSED AVAILABILITY OF HOME HEALTH, REHAB SERVICES AND MEDICAL EQUIPMENT. PT DENIES DISCHARGE NEEDS, REPORTS [facility] WILL PICK HIM UP FOR DISCHARGE HOME. IMPORTANT MESSAGE FROM MEDICARE PROVIDED AND EXPLAINED. PT PLANS TO DISCHARGE BACK TO [facility]. [facility] WILL NEED TO REASSESS PT TO RETURN. FOR DISCHARGE, NOTIFY [facility] NURSE AT [phone]. Director Global Intelligence: Florencio Nelson DCPIA - Discharge Planning Initial Assessment Updated by [email or web address]: Florencio Nelson on 08/27/19 12:17 pm * Is the patient Alert and Oriented? Yes * How many steps to enter\exit or inside your home? ELEVATOR * PCP DR. RENU NAIDU * [facility] * Preadmission Environment Assisted Living * Facility Name [facility] * ADLs Partial Dependent * Partial ADLs (Assistance needed) Medication Management * Equipment Cane Nebulizer Oxygen * Other Equipment HOME AND PORTABLE OXYGEN [facility] * List name and contact numbers for known caregivers / representatives who currently or will assist patient after discharge: GERA HICKS, DTR, BIBI LANG, SON, * Verbal permission to speak to the caregivers and representatives has been obtained from the patient. N/A * Community resources currently utilized None * Please name any agencies selected above. NONE * Additional services required to return to the preadmission environment? No * Can the patient safely return to the preadmission environment? Yes * Has this patient been hospitalized within the prior 30 days at any hospital? No Coverage Notice Reviewer: [id number] - Florencio Nelson Notice Issued Date-Time: 08/29/2019 11:50 Notice Type: IM Discharge Notice Notice Delivered To: Patient Relationship to Patient: Business Segment Manager Name: Delivery Method: HAND - Hand Delivered Chelo Days: Prior Verbal Notification: Recipient Understood Notice: Yes Recipient Signature: Yes Med Rec Note Co-signed by Attending: Coverage Notice Comment: Last DP export: 08/29/19 12:36 p Patient Name: SHELLY LANG Page 81019 at 1549 All edits/amendments must be made on the electronic document DICTATION DATE: 08/30/199 RN ALLERGY: LETICIA 08/30/19 1549 RPT#: [id number] DC DATE:08/29/19 STATUS: DIS IN [facility] [address] [place] [address] END OF REPORT
[2019-09-01 11:09] LABS: FUNGUS CULTURE RESULT 1 Candida albicans (()); FUNGUS MYCOLOGY CULTURE Preliminary report (())
[2019-09-01 11:09] LABS: FUNGUS CULTURE RESULT 1 Candida albicans (()); FUNGUS MYCOLOGY CULTURE Preliminary report (())
[2019-09-01 11:09] LABS: FUNGUS CULTURE RESULT 1 Candida albicans (()); FUNGUS MYCOLOGY CULTURE Preliminary report (())
== END 2019-08-29 17:48 | disposition home or self-care (01) | DRG 177 ==
LOC: D.ER 08:29 → D.M2 10:27
PROVIDERS: Emergency Medicine; Internal Medicine Interventional Cardiology; Internal Medicine Nephrology; Internal Medicine Pulmonary Disease; ADMIT Family Medicine; ATTEND Family Medicine
PROC: B2151ZZ Fluoroscopy of Left Heart using Low Osmolar Contrast (ICD-10-PCS; 2019-08-22)
PROC: 4A023N7 Measurement of Cardiac Sampling and Pressure, Left Heart, Percutaneous Approach (ICD-10-PCS; 2019-08-22)
PROC: B2111ZZ Fluoroscopy of Multiple Coronary Arteries using Low Osmolar Contrast (ICD-10-PCS; principal; 2019-08-22 10:30)
PROC: 0B9J8ZX Drainage of Left Lower Lung Lobe, Via Natural or Artificial Opening Endoscopic, Diagnostic (ICD-10-PCS; 2019-08-27)
PROC: 0B9G8ZX Drainage of Left Upper Lung Lobe, Via Natural or Artificial Opening Endoscopic, Diagnostic (ICD-10-PCS; 2019-08-27)
DX: J15.212 Pneumonia due to Methicillin resistant Staphylococcus aureus (principal); I21.A1 Myocardial infarction type 2; J96.22 Acute and chronic respiratory failure with hypercapnia; J96.21 Acute and chronic respiratory failure with hypoxia; J44.1 Chronic obstructive pulmonary disease with (acute) exacerbation; J44.0 Chronic obstructive pulmonary disease with (acute) lower respiratory infection; I42.9 Cardiomyopathy, unspecified; I25.110 Atherosclerotic heart disease of native coronary artery with unstable angina pectoris; I11.0 Hypertensive heart disease with heart failure; I50.9 Heart failure, unspecified; D53.9 Nutritional anemia, unspecified; J20.9 Acute bronchitis, unspecified; K21.9 Gastro-esophageal reflux disease without esophagitis